=== PATIENT | female | born 1970 | race Caucasian/White ===

== ENCOUNTER 2022-07-23 14:02 | Outpatient (OUT) | payer BC, SELFPAY ==
[2022-07-23 13:59] LABS: Anion Gap 12.8; BUN Creatinine Ratio 16.7; Calcium 9.7 mg/dL (8.5-10.1); Carbon Dioxide 28.7 mmol/L (21.0-32.0); Chloride 100 mmol/L (98-107); Estimated GFR (African America >60 (>=60); Estimated GFR (Non-African Ame 57 (>=60); Glucose 92 mg/dL (74-106); Potassium 3.5 mmol/L (3.5-5.1); Sodium 138 mmol/L (136-145)
== END 2022-07-23 14:03 | disposition home or self-care (01) ==
LOC: LAB 08-17 14:51
PROVIDERS: PCP Internal Medicine; Visit Provider Family Medicine
DX: Z79.899 Other long term (current) drug therapy (principal)
CPT/HCPCS: 36415; 80048

== ENCOUNTER 2022-12-07 13:57 | Emergency (ER) | payer BC, SELFPAY ==
[2022-12-07 14:00] VITALS: BP 146/90; PULSE 78; RESP 18; TEMP 36.8; O2SAT 98; BMI 26.9
--- NOTE | 2022-12-07 14:17 | CT_ITS ---
The [address] [address] Patient Name: DEMARCUS VENTURA MRN: [id number] date: 1970 Sex: F Assigned Patient Location: ER Current Patient Location: ER Accession/Order Number: [id number] Exam Date: 12/07/2022 14:33 Report Date: 12/07/2022 14:58 At the request of: LYNDSAY SAHA Procedure: CT facial bones w con CT facial bones w con, 12/07/2022 2:33 PM EDT, [facility]001 INDICATION: right periorbital erythema and swelling COMPARISON: CT of the face from 10/19/2021.. TECHNIQUE: CT examination of the maxillofacial region is performed with administration of water soluble intravenous contrast. Axial images were obtained with reconstructions in the sagittal and coronal planes. Dose reduction techniques were achieved by using automated exposure control and/or adjustment of mA and /or kV according to patient size and/or use of iterative reconstruction technique. FINDINGS: There is evidence of healing of previously identified nasal bone fractures. No acute fracture is identified. No destructive osseous process is seen. The paranasal sinuses are well aerated. There is moderate right periorbital soft tissue swelling. No radiopaque foreign body is identified. The intraorbital soft tissues appear unremarkable. There is no evidence of soft tissue mass or abnormal enhancement. CT/CT facial bones w con IMPRESSION: No acute fracture is seen. There is moderate right periorbital soft tissue swelling. No radiopaque foreign bodies are identified. Electronically authenticated by: URIEL JC Date: 12/07/2022 14:58
--- NOTE | 2022-12-07 14:18 | ED.GENADUL1 ---
HPI - General Adult General Chief complaint: Wound/Laceration Stated complaint: RIGHT EYE PAIN Time Seen by Provider: 12/07/22 14:11 Source: patient Mode of arrival: walk-in History of Present Illness HPI narrative: 52-year-old female presents for swelling and redness around her right eye, are typically above the eye. a few days ago she developed in area that was firm and it came to the head and some pus came out of it. She was put on Bactrim yesterday and has had three doses. Become more swollen and the redness is below her right eye as well as above. No visual disturbance or fever. Related Data Home Medications Medication Instructions Recorded Confirmed clindamycin phosphate 1 % topical 1 applic topical BID PRN wound care 12/07/22 12/07/22 gel hydrochlorothiazide 25 mg tablet 25 mg PO DAILY 12/07/22 12/07/22 metoprolol tartrate 25 mg tablet 25 mg PO Q12H 12/07/22 12/07/22 pramipexole 0.5 mg tablet 0.5 mg PO .qhs 12/07/22 12/07/22 sulfamethoxazole 800 1 tab PO Q12H 12/07/22 12/07/22 mg-trimethoprim 160 mg tablet vancomycin 125 mg capsule 125 mg PO DAILY 12/07/22 12/07/22 Previous Rx's Medication Instructions Recorded cephalexin 500 mg capsule 500 mg PO TID 7 days #21 caps 12/07/22 Allergies Allergy/AdvReac Type Severity Reaction Status Date / Time No Known Drug Allergies Allergy Verified 12/07/22 14:00 Review of Systems ROS Narrative A ten point review of systems is negative except as noted above. Exam Narrative Exam Narrative: Nurses note and vital signs reviewed and patient is not hypoxic. General: The patient appears well and in no apparent distress. Patient is resting comfortably on cart. Skin: Warm, dry, no pallor noted. There is no rash noted. Head: Normocephalic, atraumatic Eye: Normal conjunctiva, no drainage. She has an area of induration, no fluctuance, just below the right eyebrow. There is erythema that extends to the right infraorbital area. Extraocular movements are intact. Ears, Nose, Mouth, and Throat: oral mucosa is moist. Nares patent. Mouth without vesicles. Ear canals patent. Tm's without Erythema Cardiovascular: Regular Rate and Rhythm Respiratory: Patient is in no distress, no accessory muscle use Back: non-tender GI: nontender Musculoskeletal: no joint swelling Neurological: A&O, normal speech Psychiatric: Cooperative Constitutional Vital Signs, click to edit/add: Last Vital Signs Temp 98.2 F 12/07/22 14:00 Pulse 68 12/07/22 15:29 Resp 16 12/07/22 15:29 BP 127/77 12/07/22 15:29 Pulse Ox 98 12/07/22 15:29 O2 Del Method Room Air 12/07/22 15:29 Course Vital Signs Vital signs: Vital Signs Temperature 98.2 F 12/07/22 14:00 Pulse Rate 78 12/07/22 14:00 Respiratory Rate 18 12/07/22 14:00 Blood Pressure 146/90 H 12/07/22 14:00 Pulse Oximetry 98 12/07/22 14:00 Temperature 98.2 F 12/07/22 14:00 Pulse Rate 68 12/07/22 15:29 Respiratory Rate 16 12/07/22 15:29 Blood Pressure 127/77 12/07/22 15:29 Pulse Oximetry 98 12/07/22 15:29 Oxygen Delivery Method Room Air 12/07/22 15:29 Medical Decision Making MDM Narrative Medical decision making narrative: CAT scan of the face per radiologist suggests the possibility of a 1 x 1 x 1 cm abscess. This was discussed thoroughly with the patient and she was given several options. She was given the option of IV antibiotics here and no incision and drainage with repeat evaluation in a few days. She was also given the option of incision and drainage here today and the pros and cons of each were discussed with her including scarring. He'll ask to have the incision and drainage done today. Differential Diagnosis Differential Diagnosis: facial cellulitis, facial abscess Lab Data Lab results reviewed: Yes I reviewed the patient's lab results Labs: Lab Results 12/07/22 Range/Units 14:14 WBC 7.5 (4.0-11.0) 10^3/uL RBC 4.46 (4.20-5.40) 10^6/uL Hgb 13.4 (12.0-16.0) g/dL Hct 38.9 (36.0-48.0) % MCV 87.2 (81.0-99.0) fL MCH 30.0 (26.7-34.0) pg MCHC 34.4 (29.9-35.2) g/dL RDW 12.9 (11.0-15.0) % Plt Count 286 (150-450) 10^3/uL MPV 11.2 (9.5-13.5) fL Neut % (Auto) 66.9 (43.0-75.0) % Lymph % (Auto) 24.4 (20.5-60.0) % Campbell % (Auto) 6.4 (1.7-12.0) % Eos % (Auto) 1.7 (0.9-7.0) % Baso % (Auto) 0.3 (0.2-2.0) % Neut # (Auto) 5.0 (1.4-6.5) 10^3/uL Lymph # (Auto) 1.8 (1.2-3.8) 10^3/uL Campbell # (Auto) 0.5 (0.3-0.8) 10^3/uL Eos # (Auto) 0.1 (0.0-0.7) 10^3/uL Baso # (Auto) 0.0 (0.0-0.1) 10^3/uL Abs Immat Gran (auto) 0.02 (0.00-0.03) 10^3/uL Imm/Tot Granulo (auto) 0.3 (0.0-0.5) % Imaging Data CT facial bones: Radiologist's impression: Procedure: CT facial bones w con Begin Addendum #1 Further review of the images was made. Images 57 through 59 demonstrates a 1. 1 x 1. 0 cm area of hypodensity with peripheral hyperdensity suspicious for a focal abscess along the superior medial orbital rim. These findings were discussed with emergency room physician by telephone 3:[address] facial bones w con, 12/07/2022 2:33 PM EDT, [facility]001 INDICATION: right periorbital erythema and swelling COMPARISON: CT of the face from 10/19/2021. . TECHNIQUE: CT examination of the maxillofacial region is performed with administration of water soluble intravenous contrast. Axial images were obtained with reconstructions in the sagittal and coronal planes. Dose reduction techniques were achieved by using automated exposure control and/or adjustment of mA and /or kV according to patient size and/or use of iterative reconstruction technique. FINDINGS: There is evidence of healing of previously identified nasal bone fractures. No acute fracture is identified. No destructive osseous process is seen. The paranasal sinuses are well aerated. There is moderate right periorbital soft tissue swelling. No radiopaque foreign body is identified. The intraorbital soft tissues appear unremarkable. There is no evidence of soft tissue mass or abnormal enhancement. IMPRESSION: No acute fracture is seen. There is moderate right periorbital soft tissue swelling. No radiopaque foreign bodies are identified. Electronically authenticated by: TEVIN DE LA CRUZ Date: 12/07/2022 15:11 Discharge Plan Discharge Chief Complaint: Wound/Laceration Clinical Impression: Cellulitis of face Patient Disposition: Home, Self-Care Time of Disposition Decision: 15:51 Condition: Good Mode of Transportation: Private Vehicle Prescriptions / Home Meds: New cephalexin 500 mg capsule 500 mg PO TID 7 Days Qty: 21 0RF No Action clindamycin phosphate 1 % gel 1 applic TOPICAL BID PRN (Reason: wound care) hydrochlorothiazide 25 mg tablet 25 mg PO DAILY metoprolol tartrate 25 mg tablet 25 mg PO Q12H pramipexole 0.5 mg tablet 0.5 mg PO .qhs sulfamethoxazole-trimethoprim 800-160 mg tablet 1 tab PO Q12H vancomycin 125 mg capsule 125 mg PO DAILY Instructions: Cellulitis (ED) Additional Instructions: Continue the Bactrim Stand Alone Forms: Portal Instructions Referrals: KORINA CROWE [Primary Care Provider] - 1 week Procedures ED Procedure Instructions Procedures Procedures: the following procedure was performed by me. Local infiltration was carried out with one percent lidocaine without epinephrine resulting in complete skin anesthesia. The area was prepped with Betadine ?3 and draped sterilely. Using a #11 blade a very small incision was made and a small amount of bleeding occurred. One side of a curved hemostat was placed into the open area and was rotated. She tolerated the procedure well and there were no complications. Wound culture ordered.
[2022-12-07 14:50] LABS: Basophils Percent Auto 0.3 % (0.2-2.0); Eosinophils Absolute Auto 0.1 10^3/uL (0.0-0.7); Eosinophils Percent Auto 1.7 % (0.9-7.0); Hematocrit 38.9 % (36.0-48.0); Hemoglobin 13.4 g/dL (12.0-16.0); Immature Granulocytes Abs Auto 0.02 10^3/uL (0.00-0.03); Immature Granulocytes Pct Auto 0.3 % (0.0-0.5); Lymphocytes Absolute Auto 1.8 10^3/uL (1.2-3.8); Lymphocytes Percent Auto 24.4 % (20.5-60.0); Mean Corpuscular HGB Conc 34.4 g/dL (29.9-35.2); Mean Corpuscular Volume 87.2 fL (81.0-99.0); Mean Platelet Volume 11.2 fL (9.5-13.5); Monocytes Absolute Auto 0.5 10^3/uL (0.3-0.8); Monocytes Percent Auto 6.4 % (1.7-12.0); Neutrophils Percent Auto 66.9 % (43.0-75.0); Platelet Count 286 10^3/uL (150-450); Red Blood Count 4.46 10^6/uL (4.20-5.40); Red Cell Distribution Width 12.9 % (11.0-15.0); White Blood Count 7.5 10^3/uL (4.0-11.0)
[2022-12-07 15:29] VITALS: BP 127/77; PULSE 68; RESP 16; O2SAT 98
[2022-12-07] MEDS: LIDOCAINE HCL 1% 100 MG/10 ML MDV INJ (15:32)
[2022-12-07 16:14] LABS: Anion Gap 14.1; BUN Creatinine Ratio 7.7; Calcium 9.1 mg/dL (8.5-10.1); Carbon Dioxide 26.7 mmol/L (21.0-32.0); Chloride 95 mmol/L (98-107); Estimated GFR (African America >60 (>=60); Estimated GFR (Non-African Ame 56 (>=60); Glucose 75 mg/dL (74-106); Sodium 133 mmol/L (136-145)
[2022-12-07 16:15] LABS: Potassium 2.8 mmol/L (3.5-5.1)
== END 2022-12-07 16:18 | disposition home or self-care (01) ==
PROVIDERS: Emergency Provider Emergency Medicine; PCP Internal Medicine
DX: L03.211 Cellulitis of face (principal); Z79.899 Other long term (current) drug therapy
CPT/HCPCS: 10060; 36415; 70487; 80048; 85025; 87070; 87150; 87186; 99285; Q9967

== ENCOUNTER 2023-03-24 14:05 | Outpatient (OUT) | payer BC, SELFPAY ==
--- NOTE | 2023-03-24 14:05 | PCN_ITS ---
EEG ? Procedure Date:? 03/24/2023 ? This is a routine EEG performed on a 52-year-old female using standard 10/20 lead placement in the [employer] system.? All data was obtained digitally and is available for reformatting and remontaging.? ? There is a posterior dominant rhythm in the 9-11 Hz alpha range and 20-30 microvolt amplitude range recorded in the occipital leads symmetrically during restful wakefulness.? This rhythm attenuates with eye opening.? There is beta activity in the 15-20 Hz range and less than 20 microvolt amplitude range, recorded in the frontal sensory regions intermittently and symmetrically throughout the record.? ? There is beta activity in the 4-6 Hz range and 20-40 microvolt amplitude range recorded in a generalized pattern during one period during the record, which occurred infrequently. ? There is no epileptiform activity recorded during the record.? There are no seizures recorded during the record.? ? IMPRESSION:? This is an abnormal EEG due to intermittent slow generalized activity consistent with mild diffuse encephalopathy.? Clinical correlation is required. MTDD
== END 2023-03-24 14:06 | disposition home or self-care (01) ==
LOC: CARD 14:05
PROVIDERS: PCP Internal Medicine; Visit Provider Family Medicine
DX: R44.2 Other hallucinations (principal)
CPT/HCPCS: 95819

== ENCOUNTER 2023-04-06 13:43 | Outpatient (OUT) | payer BC, SELFPAY ==
--- NOTE | 2023-04-06 13:47 | MR_ITS ---
The [address] [address] Patient Name: DEMARCUS VENTURA MRN: [id number] date: 1970 Sex: F Assigned Patient Location: MRI Current Patient Location: MRI Accession/Order Number: [id number] Exam Date: 04/06/2023 13:57 Report Date: 04/06/2023 15:39 At the request of: TITO FREEDMAN Procedure: MR head/brain wo/w con MRI brain with and without contrast, 04/06/2023. HISTORY: Abnormal sensation of smell. COMPARISON: None. TECHNIQUE: Multiplanar, multisequence MRI imaging of the brain with and without contrast. FINDINGS: The paranasal sinuses are clear. Mastoid air cells are clear. Orbital contents are normal. Nasopharynx is normal. 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 The ventricles are normal in size. No hydrocephalus. No mass effect. No shift of midline. No abnormal signal in the brain. The diffusion images are normal. No acute infarction. There are no hemorrhagic lesions. No pathologic enhancement in the brain. No brain mass. MR/MR head/brain wo/w con IMPRESSION: Normal MRI of the brain. Electronically authenticated by: MANUEL MALONE Date: 04/06/2023 15:39
--- OUTSIDE RECORDS SUMMARY | 2023-04-06 13:47 | XMS_ITS | CCD ---
Author Name Unknown Address [address] [place] [address] Organization [facility] Care Team Providers Care Primer Waterproofing Machine Operator Name Role Phone PHYSICIAN, DEFAULT Unavailable Unavailable PHYSICIAN, DEFAULT Unavailable Unavailable DOROTHY, DR TEVIN Tobin Consulting Unavailable NAYELI ., CLARK Attending Unavailable NAYELI ., CLARK Admitting Unavailable HOY ., DR FRANCIS Primary Care Unavailable RON, DR ADA Kennedy Consulting Unavailable FRITZ ., ELIEL Consulting Unavailable NAYELI ., CLARK Consulting Unavailable DOROTHY, DR TEVIN Tobin Consulting Unavailable LEONAY ., DR FRANCIS Primary Care Unavailable DOROTHY, DR TEVIN Tobin Attending Unavailable DOROTHY, DR TEVIN Tobin Admitting Unavailable HOY ., DR FRANCIS Consulting Unavailable HOY ., DR FRANCIS Primary Care Unavailable HOY ., DR FRANCIS Attending Unavailable HOY ., DR FRANCIS Admitting Unavailable HOY ., DR FRANCIS Consulting Unavailable HOY ., DR FRANCIS Primary Care Unavailable HOY ., DR FRANCIS Attending Unavailable HOY ., DR FRANCIS Admitting Unavailable NAYELI ., CLARK Consulting Unavailable NAYELI ., CLARK Attending Unavailable NAYELI ., CLARK Admitting Unavailable HOY ., DR FRANCIS Primary Care Unavailable HOY ., DR FRANCIS Primary Care Unavailable HOY ., DR FRANCIS Attending Unavailable HOY ., DR FRANCIS Admjoanie Unavailable HOY ., DR FRANCIS Consulting Unavailable HOY ., DR FRANCIS Primary Care Unavailable HOY ., DR FRANCIS Attending Unavailable HOY ., DR FRANCIS Admitting Unavailable HOY ., DR FRANCIS Consulting Unavailable HOY ., DR FRANCIS Primary Care Unavailable HOY ., DR FRANCIS Attending Unavailable HOY ., DR FRANCIS Admitting Unavailable GRIFFIN ., MR ACOSTA Consulting Unavailable HOY ., DR FRANCIS Primary Care Unavailable GRIFFIN ., MR ACOSTA Attending Unavailable GRIFFIN ., MR DAVE Admitting Unavailable HOY ., DR FRANCIS Primary Care Unavailable GRIFFIN ., MR DAVE Consulting Unavailable GRIFFIN ., MR DAVE Attending Unavailable GRIFFIN ., MR DAVE Admitting Unavailable DOROTHY, DR TEVIN Tobin Consulting Unavailable HOY ., DR FRANCIS Primary Care Unavailable JAMIE, NELIA Attending Unavailable JAMIE, NELIA Admitting Unavailable NELIA AYALA Consulting Unavailable RON, DR ADA Kennedy Consulting Unavailable HOY ., DR FRANCIS Primary Care Unavailable AYUSH FLORENCE Attending Unavailable APLING, AYUSH Guevara Admitting Unavailable APLINGAYUSH Consulting Unavailable HOY ., DR FRANCIS Consulting Unavailable HOY ., DR FRANCIS Primary Care Unavailable HOY ., DR FRANCIS Attending Unavailable HOY ., DR FRANCIS Admitting Unavailable HOY ., DR FRANCIS Consulting Unavailable HOY ., DR FRANCIS Primary Care Unavailable HOY ., DR FRANCIS Attending Unavailable HOY ., DR FRANCIS Admitting Unavailable HOY ., DR FRANCIS Consulting Unavailable HOY ., DR FRANCIS Primary Care Unavailable HOY ., DR FRANCIS Attending Unavailable HOY ., DR FRANCIS Admitting Unavailable HOY ., DR FRANCIS Consulting Unavailable HOY ., DR FRANCIS Primary Care Unavailable HOY ., DR FRANCIS Attending Unavailable HOY ., DR FRANCIS Admitting Unavailable MD Martin Chao Primary Care Provider [phone] MD Segundo Macias Jr Emergency Provider Daren Boo Unavailable MD Daren Boo Attending Provider [phone] NO FAMILY, PHYSICIAN Primary Care Provider Unava ilable Martin Chao Primary Care Unavailable Segundo Macias Jr Admitting Unavailable Segundo Macias Jr Attending Unavailable NO FAMILY, PHYSICIAN Primary Care Unavailable Daren Boo Admitting Unavailable Daren Boo Attending Unavailable NO FAMILY, PHYSICIAN Primary Care Unavailable Daren Boo Admitting Unavailable Daren Boo Attending Unavailable Medications Current Medications Medication Drug Class(es) Dates Sig (Normalized) Sig (Original) acetaminophen 325 mg / oxyCODONE hydrochloride 5 mg oral tablet (3 sources) Opioid Agonist Start: 09-07-19 take 1 tablet by mouth every six hours Oxycodone-Acetaminophe n (Percocet) 5-325 mg tablet Active 1 TAB PO Every 6 hours 01 23September 06, 2022 clindamycin 0.01 mg/mg topical gel (1 source) Lincosamide Antibacterial Start: 10-08-19 Clindamycin Phosphate 1 % 1 application Externally Twice a day for 14 days CLINDAMYCIN BASED GEL; GENERIC OK. LARGE TUBE Sep, Active hydroCHLOROthiazide 25 mg oral tablet (1 source) Thiazide Diuretic take 1 tablet by mouth every twenty-four hours hydroCHLOROthiazide 25 MG 1 tablet Orally Once a day Active ibuprofen 600 mg oral tablet (3 sources) Nonsteroidal Anti-inflammatory Drug Start: 09-07-19 take 600 mg by mouth every eight hours Ibuprofen Active 600 MG PO Q8H September 06, 2022 12:00am metoprolol tartrate 25 mg oral tablet (1 source) beta-Adrenergic Dae take 1 tablet by mouth every twelve hours Metoprolol Tartrate 25 MG 1 tablet with food Orally Twice a day Active 24 hr pramipexole dihydrochloride 0.375 mg extended release oral tablet (1 source) Nonergot Dopamine Agonist take 1 tablet by mouth every twenty-four hours Mirapex ER 0.375 MG 1 tablet Orally Once a day Active valACYclovir 500 mg oral tablet (1 source) Herpesvirus Nucleoside Analog DNA Polymerase Inhibitor, Herpes Simplex Virus Nucleoside Analog DNA Polymerase Inhibitor, Herpes Zoster Virus Nucleoside Analog DNA Polymerase Inhibitor take 1 tablet by mouth every twenty-four hours Valtrex 500 MG 1 tablet as needed Orally Once a day Active 24 hr venlafaxine 150 mg extended release oral capsule (1 source) Serotonin and Norepinephrine Reuptake Inhibitor take 1 capsule by mouth every twenty-four hours Effexor XR 150 MG 1 capsule with food Orally Once a day Active Problems Active Problems Problem Classification Problem Date Documented Da te Episodic/Chronic Immunizations and screening for infectious disease (7 sources) Encounter for immunization; Translations: [Carrier or suspected carrier of Methicillin resistant Staphylococcus aureus] Onset: 07-07-2021 Episodic Joint disorders and dislocations; trauma-related (4 sources) Unspecified internal derangement of right knee; Translations: [UNS INTERNAL DERANGEMENT RIGHT KNEE] Onset: 10-29-2021 Chronic Other gastrointestinal disorders (4 sources) Diarrhea, unspecified; Translations: [DIARRHEA UNSPECIFIED] Onset: 05-18-2022 Episodic Other hereditary and degenerative nervous system conditions (1 source) Extrapyramidal and movement disorder, unspecified; 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 DISORDER UNS] Onset: 10-05-2021 Chronic Skin and subcutaneous tissue infections (6 sources) Abscess of face; Translations: [Cutaneous abscess of face] 09-06-2022 Episodic Unclassified (2 sources) LOW BACK PAIN, UNSPECIFIED; Translations: [LOW BACK PAIN, UNSPECIFIED] Onset: 01-19-2022 Unclassified (3 sources) CONTACT W/AND (SUSP) EXPOS COVID-19; Translations: [CONTACT W/AND (SUSP) EXPOS COVID-19] Onset: 09-25-2021 Unclassified (1 source) Cellulitis of right orbit; Translations: [Cellulitis of right orbit] Onset: 12-09-2022 Unclassified (1 source) Abscess of right upper eyelid; Translations: [Abscess of right upper eyelid] Onset: 12-06-2022 Unclassified (1 source) Periorbital cellulitis; Translations: [Periorbital cellulitis] Onset: 09-06-2022 Viral infection (1 source) COVID-19; Translations: [COVID-19] Onset: 09-19-2021 Past or Other Problems Problem Classification Problem Date Documented Da te Episodic/Chronic Cardiac dysrhythmias (5 sources) Palpitations; Translations: [PALPITATIONS] Onset: 10-12-2021 Episodic Coagulation and hemorrhagic disorders (1 source) Spontaneous ecchymoses; Translations: [SPONTANEOUS ECCHYMOSES] Onset: 01-11-2022 Episodic Diabetes mellitus without complication (1 source) Other abnormal glucose; Translations: [OTHER ABNORMAL GLUCOSE] Onset: 10-05-2021 Episodic E Codes: Fall (1 source) Fall (on) (from) unspecified stairs and steps, initial encounter; Translations: [FALL ON FROM UNS STAIRS STEPS INIT] Onset: 10-21-2021 Episodic E Codes: Natural/environment (1 source) Other and unspecified overexertion or strenuous movements or postures, initial encounter; Translations: [OTH AND UNS OVREXRT/STRN MVMT/POS INT] Onset: 01-19-2022 Episodic Malaise and fatigue (1 source) Other fatigue; Translations: [OTHER FATIGUE] Onset: 01-11-2022 Episodic Nonspecific chest pain (4 sources) Chest pain, unspecified; Translations: [CHEST PAIN UNSPECIFIED] Onset: 01-11-2022 Episodic Open wounds of head; neck; and trunk (1 source) Laceration without foreign body of other part of head, initial encounter; Translations: [LAC W/O FB OTH PART HEAD INIT ENC] Onset: 10-21-2021 Episodic Other aftercare (1 source) Other lobsterman (current) drug therapy; Translations: [OTH DIRECTOR OF GIFT PLANNING CURRENT DRUG THERAPY] Onset: 10-21-2021 Episodic Other connective tissue disease (4 sources) Pain in left foot; Translations: [PAIN IN LEFT FOOT] Onset: 03-01-2022 Episodic Other connective tissue disease (4 sources) Pain in left toe(s); Translations: [PAIN IN LEFT TOES] Onset: 02-08-2022 Episodic Other injuries and conditions due to external causes (4 sources) Other specified injuries of head, initial encounter; Translations: [OTH SPEC INJURIES HEAD INITIAL ENC] Onset: 10-19-2021 Episodic Other non-traumatic joint disorders (4 sources) Pain in right knee; Translations: [PAIN IN RIGHT KNEE] Onset: 02-01-2022 Episodic Other skin disorders (1 source) Localized swelling, mass and lump, left lower limb; Translations: [LOC SWELL MASS LUMP LT LOWER LIMB] Onset: 03-03-2022 Episodic Skull and face fractures (1 source) Fracture of nasal bones, initial encounter for closed fracture; Translations: [FX NASAL BONES INITIAL ENC CLOS FX] Onset: 10-21-2021 Episodic Sprains and strains (1 source) Strain of muscle, fascia and tendon of lower back, initial encounter; Translations: [STRAIN MUSC FASC TENDON LW BACK INT] Onset: 01-19-2022 Episodic Superficial injury; contusion (1 source) Contusion of right knee, initial encounter; Translations: [CONTUSION RIGHT KNEE INITIAL ENC] Onset: 10-21-2021 Episodic Unclassified (1 source) LOW BACK PAIN, UNSPECIFIED; Translations: [LOW BACK PAIN, UNSPECIFIED] Onset: 01-14-2022 Unclassified (1 source) CONTACT W/AND (SUSP) EXPOS COVID-19; Translations: [CONTACT W/AND (SUSP) EXPOS COVID-19] Onset: 09-23-2021 Results Test Name Value Interpretation Reference Range Facility MRSA Cultureon 12-06-2022 MRSA Culture No MRSA Isolated 2 Days PERFORMED BY: [facility] [address] [place] [address] PATHOLOGIST FRETTED STRING INSTRUMENT REPAIRER COLLEEN CHAVEZ M.D. Normal [facility] Comment on above: Performed By: #### C UMRSA #### [facility] [address] Alanine aminotransferase [En zymatic activity/volume] in Serum or PlasmaOrdered By: PROVIDER TEMP on 09-06-2022 ALT [Catalytic activity/Vol] 11 U/L 7-52 [facility] Albumin [Mass/volume] in Ser um or Plasma by Bromocresol green (BCG) dye binding methoOrdered By: PROVIDER TEMP on 09-06-2022 Albumin BCG dye [Mass/Vol] 4.8 g/dL 3.5-5.7 [facility] Alkaline phosphatase [Enzyma tic activity/volume] in Serum or PlasmaOrdered By: PROVIDER TEMP on 09-06-2022 ALP [Catalytic activity/Vol] 76 U/L 34-104 [facility] Aspartate aminotransferase [ Enzymatic activity/volume] in Serum or PlasmaOrdered By: PROVIDER TEMP on 09-06-2022 AST [Catalytic activity/Vol] 19 U/L 13-39 [facility] Basophils Auto (Bld) [#/Vol] Ordered By: PROVIDER TEMP on 09-06-2022 Basophils (Bld) [#/Vol] 0.0 10*3/uL 0.0-0.2 [facility] Basophils/100 WBC Auto (Bld) Ordered By: PROVIDER TEMP on 09-06-2022 Basophils/100 WBC (Bld) 0.5 % . [facility] Bilirubin.total [Mass/volume ] in Serum or PlasmaOrdered By: PROVIDER TEMP on 09-06-2022 Bilirubin [Mass/Vol] 0.4 mg/dL 0.3-1.0 [facility] Calcium [Mass/volume] in Ser um or PlasmaOrdered By: PROVIDER TEMP on 09-06-2022 Calcium [Mass/Vol] 9.4 mg/dL 8.6-10.3 [facility] Carbon dioxide, total [Moles /volume] in Serum or PlasmaOrdered By: PROVIDER TEMP on 09-06-2022 CO2 [Moles/Vol] 28.2 mmol/L 21.0-31.0 [facility] Chloride [Moles/volume] in S fausto or PlasmaOrdered By: PROVIDER TEMP on 09-06-2022 Chloride [Moles/Vol] 100 mmol/L 98-107 [facility] Complete Blood Count Auto Di ffon 09-06-2022 Basophils (Bld) [#/Vol] 0.0 10*3/uL Normal 0.0-0.2 [facility] Comment on above: Result Comment: PERF ORMED BY: [place] [address] PATHOLOGIST FRETTED STRING INSTRUMENT REPAIRER COLLEEN CHAVEZ M.D. Performed By: #### C BC, CMP #### [address] Basophils/100 WBC (Bld) 0.5 % Normal . [facility] Comment on above: Performed By: #### C BC, CMP #### [address] Eosinophils (Bld) [#/Vol] 0.1 10*3/uL Normal 0.0-0.45 [facility] Comment on above: Performed By: #### C BC, CMP #### [address] Eosinophils/100 WBC (Bld) 1.2 % Normal . [facility] Comment on above: Performed By: #### C BC, CMP #### [address] Erythrocyte distribution width (RBC) [Ratio] 14.3 % Normal 11.9-15.3 [facility] Comment on above: Performed By: #### C BC, CMP #### [address] Hematocrit (Bld) [Volume fraction] 41.1 % Normal 34.0-46.4 [facility] Comment on above: Performed By: #### C BC, CMP #### [address] Hemoglobin (Bld) [Mass/Vol] 13.7 g/dL Normal 11.8-15.4 [facility] Comment on above: Performed By: #### C BC, CMP #### [facility] [address] [place] [address] [place] Lymphocytes (Bld) [#/Vol] 2.3 10*3/uL Normal 1.00-4.8 [facility] Comment on above: Performed By: #### C BC, CMP #### [facility] [address] Lymphocytes/100 WBC (Bld) 28.7 % Normal . [facility] Comment on above: Performed By: #### C BC, CMP #### [facility] [address] MCH (RBC) [Entitic mass] 29.6 pg Normal 24.7-34.3 [facility] Comment on above: Performed By: #### C BC, CMP #### [facility] [address] MCV (RBC) [Entitic vol] 88.9 fL Normal 80-100 [facility] Comment on above: Performed By: #### C BC, CMP #### [facility] [address] Mean Corpuscular HGB Conc 33.3 g/dL Normal 32.0-35.0 [facility] Comment on above: Performed By: #### C BC, CMP #### [facility] [address] [place] [address] [place] Monocytes (Bld) [#/Vol] 0.4 10*3/uL Normal 0.0-0.8 [facility] Comment on above: Performed By: #### C BC, CMP #### [facility] [address] [place] [address] [place] Monocytes/100 WBC (Bld) 18.29 % Normal 0.00-20.00 [facility] Comment on above: Performed By: #### C BC, CMP #### [facility] [address] [place] [address] [place] Monocytes/100 WBC (Bld) 4.7 % Normal . [facility] Comment on above: Performed By: #### C BC, CMP #### [facility] [address] [place] [address] [place] Neutrophils (Bld) [#/Vol] 5.2 10*3/uL Normal 1.8-7.7 [facility] Comment on above: Performed By: #### C BC, CMP #### [facility] [address] [place] [address] [place] Neutrophils/100 WBC (Bld) 64.9 % Normal . [facility] Comment on above: Performed By: #### C BC, CMP #### [facility] [address] NRBC% 0.1 /100{WBC} Normal 0-0.5 [facility] Comment on above: Performed By: #### C BC, CMP #### [facility] [address] Platelet mean volume (Bld) [Entitic vol] 8.8 fL Normal 6.3-10.7 [facility] Comment on above: Performed By: #### C BC, CMP #### [facility] [address] [place] [address] [place] Platelets (Bld) [#/Vol] 252 10*3/uL Normal 150-450 [facility] Comment on above: Performed By: #### C BC, CMP #### [facility] [address] [place] [address] [place] RBC (Bld) [#/Vol] 4.62 10*6/uL Normal 3.60-5.00 [facility] Comment on above: Performed By: #### C BC, CMP #### [facility] [address] [place] [address] [place] WBC (Bld) [#/Vol] 8.0 10*3/uL Normal 3.8-11.6 [facility] Comment on above: Performed By: #### C BC, CMP #### [facility] [address] Comprehensive Metabolic Pane parag 09-06-2022 Albumin [Mass/Vol] 4.8 g/dL Normal 3.5-5.7 [facility] Comment on above: Performed By: #### C BC, CMP #### [facility] [address] Albumin/Globulin [Mass ratio] 1.6 {ratio} Normal [facility] Comment on above: Performed By: #### C BC, CMP #### [facility] [address] ALP [Catalytic activity/Vol] 76 U/L Normal 34-104 [facility] Comment on above: Performed By: #### C BC, CMP #### [facility] [address] ALT [Catalytic activity/Vol] 11 U/L Normal 7-52 [facility] Comment on above: Performed By: #### C BC, CMP #### [address] Anion gap [Moles/Vol] 12.8 mmol/L Normal 6.0-15.0 [facility] Comment on above: Performed By: #### C BC, CMP #### [facility] [address] [place] [address] AST [Catalytic activity/Vol] 19 U/L Normal 13-39 [facility] Comment on above: Performed By: #### C BC, CMP #### [facility] [address] [place] [address] Bilirubin [Mass/Vol] 0.4 mg/dL Normal 0.3-1.0 [facility] Comment on above: Performed By: #### C BC, CMP #### [facility] [address] [place] [address] [place] Calcium [Mass/Vol] 9.4 mg/dL Normal 8.6-10.3 [facility] Comment on above: Performed By: #### C BC, CMP #### [facility] [address] Chloride [Moles/Vol] 100 mmol/L Normal 98-107 [facility] Comment on above: Performed By: #### C BC, CMP #### [facility] [address] CO2 [Moles/Vol] 28.2 mmol/L Normal 21.0-31.0 [facility] Comment on above: Performed By: #### C BC, CMP #### [facility] [address] Creatinine [Mass/Vol] 0.95 mg/dL Normal 0.60-1.20 [facility] Comment on above: Performed By: #### C BC, CMP #### [facility] [address] [place] [address] [place] Creatinine Clr Calc Pharmacy 59.17 [facility] Comment on above: Result Comment: PERF ORMED BY: [place] [address] PATHOLOGIST FRETTED STRING INSTRUMENT REPAIRER COLLEEN CHAVEZ M.D. Performed By: #### C BC, CMP #### [address] GFR/1.73 sq M.predicted MDRD (S/P/Bld) [Vol rate/Area] mL/min/{1.73_m2} [facility] Comment on above: Performed By: #### C BC, CMP #### [facility] [address] Globulin (S) [Mass/Vol] 3.0 g/dL Normal [facility] Comment on above: Performed By: #### C BC, CMP #### [facility] [address] Glucose [Mass/Vol] 104 mg/dL High 70-100 [facility] Comment on above: Result Comment: [place] Glucose Reference Range is dependent on time and content of last meal. Glucose of more than 200 mg/dL in a nonstressed, ambulatory subject supports the diagnosis of Diabetes Mellitus. ADA recommended reference range Performed By: #### C BC, CMP #### [facility] [address] Potassium [Moles/Vol] 3.0 mmol/L Low 3.5-5.1 [facility] Comment on above: Performed By: #### C BC, CMP #### [facility] [address] [place] [address] [place] Protein [Mass/Vol] 7.8 g/dL Normal 6.4-8.9 [facility] Comment on above: Performed By: #### C BC, CMP #### [facility] [address] [place] [address] [place] Sodium [Moles/Vol] 138 mmol/L Normal 136-145 [facility] Comment on above: Performed By: #### C BC, CMP #### [facility] [address] [place] [address] [place] Urea nitrogen [Mass/Vol] 14 mg/dL Normal 7-25 [facility] Comment on above: Performed By: #### C BC, CMP #### [facility] [address] [place] [address] [place] Creatinine [Mass/volume] in Serum or PlasmaOrdered By: PROVIDER TEMP on 09-06-2022 Creatinine [Mass/Vol] 0.95 mg/dL 0.60-1.20 [facility] Eosinophils Auto (Bld) [#/Vo l]Ordered By: PROVIDER TEMP on 09-06-2022 Eosinophils (Bld) [#/Vol] 0.1 10*3/uL 0.0-0.45 [facility] Eosinophils/100 WBC Auto (Bl d)Ordered By: PROVIDER TEMP on 09-06-2022 Eosinophils/100 WBC (Bld) 1.2 % . [facility] Erythrocyte distribution wid th Auto (RBC) [Ratio]Ordered By: PROVIDER TEMP on 09-06-2022 Erythrocyte distribution width (RBC) [Ratio] 14.3 % 11.9-15.3 [facility] Globulin Calc (S) [Mass/Vol] Ordered By: PROVIDER TEMP on 09-06-2022 Globulin (S) [Mass/Vol] 3.0 g/dL [facility] Glucose [Mass/volume] in Ser um or PlasmaOrdered By: PROVIDER TEMP on 09-06-2022 Glucose [Mass/Vol] 104 mg/dL 70-100 [facility] Comment on above: ADA recommended refe rence rangeRandom Glucose Reference Range is dependent on time and content of last meal. Glucose of more than 200 mg/dL in a nonstressed, ambulatory subject supports the diagnosis of Diabetes Mellitus. Hematocrit Auto (Bld) [Volum e fraction]Ordered By: PROVIDER TEMP on 09-06-2022 Hematocrit (Bld) [Volume fraction] 41.1 % 34.0-46.4 [facility] Hemoglobin [Mass/volume] in BloodOrdered By: PROVIDER TEMP on 09-06-2022 Hemoglobin (Bld) [Mass/Vol] 13.7 g/dL 11.8-15.4 [facility] Leukocytes [#/volume] correc hernandez for nucleated erythrocytes in Blood by Automated counOrdered By: PROVIDER TEMP on 09-06-2022 WBC corrected for nucl RBC Auto (Bld) [#/Vol] 8.0 10*3/uL 3.8-11.6 [facility] Lymphocytes Auto (Bld) [#/Vo l]Ordered By: PROVIDER TEMP on 09-06-2022 Lymphocytes (Bld) [#/Vol] 2.3 10*3/uL 1.00-4.8 [facility] Lymphocytes/100 WBC Auto (Bl d)Ordered By: PROVIDER TEMP on 09-06-2022 Lymphocytes/100 WBC (Bld) 28.7 % . [facility] MCH Auto (RBC) [Entitic mass ]Ordered By: PROVIDER TEMP on 09-06-2022 MCH (RBC) [Entitic mass] 29.6 pg 24.7-34.3 [facility] MCHC Auto (RBC) [Mass/Vol]Or dered By: PROVIDER TEMP on 09-06-2022 MCHC (RBC) [Mass/Vol] 33.3 g/dL 32.0-35.0 [facility] MCV Auto (RBC) [Entitic vol] Ordered By: PROVIDER TEMP on 09-06-2022 MCV (RBC) [Entitic vol] 88.9 fL 80-100 [facility] Monocyte distribution width [Entitic volume] in Blood by AutomatedOrdered By: PROVIDER TEMP on 09-06-2022 Monocyte distribution width Auto (Bld) [Entitic vol] 18.29 % 0.00-20.00 [facility] Monocytes Auto (Bld) [#/Vol] Ordered By: PROVIDER TEMP on 09-06-2022 Monocytes (Bld) [#/Vol] 0.4 10*3/uL 0.0-0.8 [facility] Monocytes/100 WBC Auto (Bld) Ordered By: PROVIDER TEMP on 09-06-2022 Monocytes/100 WBC (Bld) 4.7 % . [facility] Neutrophils Auto (Bld) [#/Vo l]Ordered By: PROVIDER TEMP on 09-06-2022 Neutrophils (Bld) [#/Vol] 5.2 10*3/uL 1.8-7.7 [facility] Neutrophils/100 WBC Auto (Bl d)Ordered By: PROVIDER TEMP on 09-06-2022 Neutrophils/100 WBC (Bld) 64.9 % . [facility] No Panel InformationOrdered By: PROVIDER TEMP on 09-06-2022 Estimated GFR (CKD-EPI) > 60.0 mL/Min [facility] Creatinine Clearance (Chem 59.17 [facility] Nucleated erythrocytes [Pres ence] in Blood by Automated countOrdered By: PROVIDER TEMP on 09-06-2022 Nucleated RBC Auto Ql (Bld) 0.1 /100{WBC} 0-0.5 [facility] Platelet mean volume Auto (B ld) [Entitic vol]Ordered By: PROVIDER TEMP on 09-06-2022 Platelet mean volume (Bld) [Entitic vol] 8.8 fL 6.3-10.7 [facility] Platelets Auto (Bld) [#/Vol] Ordered By: PROVIDER TEMP on 09-06-2022 Platelets (Bld) [#/Vol] 252 10*3/uL 150-450 [facility] Potassium [Moles/volume] in Serum or PlasmaOrdered By: PROVIDER TEMP on 09-06-2022 Potassium [Moles/Vol] 3.0 mmol/L 3.5-5.1 [facility] Protein [Mass/volume] in Ser um or PlasmaOrdered By: PROVIDER TEMP on 09-06-2022 Protein [Mass/Vol] 7.8 g/dL 6.4-8.9 [facility] RBC Auto (Bld) [#/Vol]Ordere d By: PROVIDER TEMP on 09-06-2022 RBC (Bld) [#/Vol] 4.62 10*6/uL 3.60-5.00 [facility] Serum or plasma albumin/glob ulin mass ratioOrdered By: PROVIDER TEMP on 09-06-2022 Albumin/Globulin [Mass ratio] 1.6 {ratio} [facility] Serum or plasma anion gap de terminationOrdered By: PROVIDER TEMP on 09-06-2022 Anion gap [Moles/Vol] 12.8 mmol/L 6.0-15.0 [facility] Sodium [Moles/volume] in Ser um or PlasmaOrdered By: PROVIDER TEMP on 09-06-2022 Sodium [Moles/Vol] 138 mmol/L 136-145 [facility] Urea nitrogen [Mass/volume] in Serum or PlasmaOrdered By: PROVIDER TEMP on 09-06-2022 Urea nitrogen [Mass/Vol] 14 mg/dL 7-25 [facility] WBC Auto (Bld) [#/Vol]Ordere d By: PROVIDER TEMP on 09-06-2022 WBC (Bld) [#/Vol] 8.0 10*3/uL 3.8-11.6 [facility] GI PANEL (PCR)on 05-18-2022 Adenovirus F 40/41 Not detected Normal NOT DETECTED [facility] Comment on above: Performed By: #### C MP, LIPID #### [facility] [address] [address] [address] Lelo Fraire Astrovirus Not detected Normal NOT DETECTED [facility] Comment on above: Performed By: #### C MP, LIPID #### [facility] [address] [address] [address] Lelo Irvin. Diff toxin A/B Detected Critically abnormal NOT DETECTED [facility] Comment on above: Performed By: #### C MP, LIPID #### [facility] [address] [address] [address] Lelo Fraire Campylobacter Not detected Normal NOT DETECTED [facility] Comment on above: Performed By: #### C MP, LIPID #### [facility] [address] [address] [address] Lelo Fraire Cryptosporidium Not detected Normal NOT DETECTED [facility] Comment on above: Performed By: #### C MP, LIPID #### [facility] [address] [place] [address] Dr. Lelo Fraire Cyclos. Cayetanensis Not detected Normal NOT DETECTED [facility] Comment on above: Performed By: #### C MP, LIPID #### [facility] [address] [place] [address] Dr. Lelo Fraire E. Coli O157 Not Applicable Normal Not Applicable [facility] Comment on above: Performed By: #### C MP, LIPID #### [facility] [address] [place] [address] Dr. Lelo Fraire E. histolytica Not detected Normal NOT DETECTED [facility] Comment on above: Performed By: #### C MP, LIPID #### [facility] [address] [place] [address] Dr. Lelo Fraire EAEC Not detected Normal NOT DETECTED [facility] Comment on above: Performed By: #### C MP, LIPID #### [facility] [address] [place] [address] Dr. Lelo Fraire EIEC Not detected Normal NOT DETECTED [facility] Comment on above: Performed By: #### C MP, LIPID #### [facility] [address] [place] [address] Dr. Lelo Fraire EPEC Not detected Normal NOT DETECTED [facility] Comment on above: Performed By: #### C MP, LIPID #### [facility] [address] [place] [address] Dr. Lelo Fraire ETEC Not detected Normal NOT DETECTED [facility] Comment on above: Performed By: #### C MP, LIPID #### [facility] [address] [place] [address] Dr. Lelo Fraire G. Lamblia Not detected Normal NOT DETECTED [facility] Comment on above: Performed By: #### C MP, LIPID #### [facility] [address] [address] [address] Lelo MARROQUIN CONTROLS PASSED Normal [facility] Comment on above: Performed By: #### C MP, LIPID #### [facility] [address] [address] [address] Lelo BURCIAGA HEADER GI PANEL BACTERIA Normal T [facility] Comment on above: Performed By: #### C MP, LIPID #### [facility] [address] [address] [address] Lelo ONEILL ECOLI GI PANEL DIARRHEAGENIC E.COLI / SHIGELLA Normal [facility] Comment on above: Performed By: #### C MP, LIPID #### [facility] [address] [place] [address] Dr. Lelo ONEILL INFO SEE BELOW Normal [facility] Comment on above: Result Comment: EAEC - Enteroaggregative E. Coli EPEC- Enteropathogenic E. Coli ETEC- Enterotoxigenic E. Coli lt/st STEC- Shigella-like toxin-producing E. Coli stx1/stx2 EIEC- Shigella/Enteroinvasive E. Coli Performed By: #### C MP, LIPID #### [facility] [address] [address] [address] Lelo ONEILL PARASITES GI PANEL PARASITES Normal [facility] Comment on above: Performed By: #### C MP, LIPID #### [facility] [address] [address] [address] Lelo ONEILL VIRUS GI PANEL VIRUSES Normal [facility] Comment on above: Performed By: #### C MP, LIPID #### [facility] [address] [address] [address] Lelo Fraire Norovirus GI/GII Not detected Normal NOT DETECTED [facility] Comment on above: Performed By: #### C MP, LIPID #### [facility] [address] [address] [address] Lelo Fraire P. Shigelloides Not detected Normal NOT DETECTED [facility] Comment on above: Performed By: #### C MP, LIPID #### [facility] [address] [place] [address] Dr. Lelo Fraire Rotavirus A Not detected Normal NOT DETECTED [facility] Comment on above: Performed By: #### C MP, LIPID #### [facility] [address] [address] [address] Lelo Fraire Salmonella Not detected Normal NOT DETECTED [facility] Comment on above: Performed By: #### C MP, LIPID #### [facility] [address] [address] [address] Lelo Fraire Sapovirus Not detected Normal NOT DETECTED [facility] Comment on above: Performed By: #### C MP, LIPID #### [facility] [address] [place] [address] Dr. Lelo Fraire STEC Not detected Normal NOT DETECTED [facility] Comment on above: Performed By: #### C MP, LIPID #### [facility] [address] [place] [address] Dr. Lelo Fraire Vibrio Not detected Normal NOT DETECTED [facility] Comment on above: Performed By: #### C MP, LIPID #### [facility] [address] [place] [address] Dr. Lelo Fraire Vibrio Cholera Not detected Normal NOT DETECTED [facility] Comment on above: Performed By: #### C MP, LIPID #### [facility] [address] [place] [address] Dr. Lelo Fraire Y. Enterocolitica Not detected Normal NOT DETECTED [facility] Comment on above: Performed By: #### C MP, LIPID #### [facility] [address] [place] [address] Dr. Lelo Fraire CRYSTALS, SYNOVIAL/JOINT FLU IDon 02-08-2022 Crystal,Synovial/Joint Fl Comment Normal None seen [facility] Comment on above: Result Comment: No c rystals seen under normal or polarized light. Performed By: #### C MP, LIPID #### [facility] [address] [place] [address] Dr. Lelo Fraire URIC ACID SERUMon 02-08-2022 Urate [Mass/Vol] 4.2 mg/dL Normal 2.6-6.0 [facility] Comment on above: Performed By: #### C ROXANNA, LIPID #### [facility] [address] [place] [address] Dr. Lelo Fraire CULTURE JOINT FLUIDon 2021 CULTURE JOINT FLUID Isolate 1 Staphylococcus warneri Light growth of ORGANISM 1 Staphylococcus warneri ANTIBIOTIC M.I.C RX STATUS Beta-Lactamase Pos POS F Cefoxitin Screen Neg NEG F Benzylpenicillin >=0.5 R F Oxacillin <=0.25 S F Gentamicin <=0.5 S F Ciprofloxacin <=0.5 S F Levofloxacin <=0.12 S F Inducible Clindamycin Resistance Neg NEG F Erythromycin >=8 R F Clindamycin <=0.25 S F Quinupristin/Dalfopr istin 0.5 S F Linezolid 2 S F Vancomycin 1 S F Tetracycline <=1 S F Rifampicin <=0.5 S F Trimethoprim/Sulfame thoxazole <=10 S F Normal [facility] Comment on above: Performed By: #### C ROXANNA, LIPID #### [facility] [address] [place] [address] Dr. Lelo Fraire GLUCOSE BODYFLUIDon 02-03-20 22 Glucose, Body Fluid 89 mg/dL Normal [facility] Comment on above: Result Comment: ____ : BODY FLUID TYPE : GLUCOSE : : : : : Amniotic Fluid : 45 - 76 : : : : : Bile, Clear : < 5 : : : : : Bile, Yellow : < 8 : : : : : Lymph : 48 - 200 : : : : : Nasal Secretion : < 10 : : : : : Pleural Fluid : 65 - 99 : : : : : Saliva : < 2 : : (Mixed Glands) : : : : : : Sweat : < 7 : : : : : Synovial Fluid : 65 - 99 : : : : : Tears : 76 - 288 : : : : . Issa WSatya V. Reference Intervals for Adults and Children 2007. Ninth edition (V9.1) [employer], [facility]; [place]: August 2008. Performed By: #### B FGLUC #### [facility] [address] [place] [address] Dr. Lelo Fraire PROTEIN, TOTAL, BODY FLUIDon 02-02-2022 Protein, Body Fluid 4.5 g/dL Normal [facility] Comment on above: Result Comment: ____ : BODY FLUID TYPE : TOTAL PROTEIN : : : : : Amniotic Fluid : <0.4 : : : : : : Nonmalignant: <3.0 : : Ascitic Fluid : Malignant: >3.0 : : : : : Bile, Clear : <0.9 : : : : : Bile, Yellow : 0.2 - 0.6 : : : : : Lymph : 2.2 - 6.0 : : : : : Human Milk : 1.9 - 2.0 : : : : : Nasal Secretion : 0.1 - 3.5 : : : : : Pancreatic : 0.0 - 0.1 : : Juice : (post stimulation) : : : : : : Transudate: <0.3 : : Pleural Fluid : Exudate: >0.3 : : : : : Saliva : 0.1 - 0.2 : : (Mixed Glands) : : : : : : Synovial Fluid : <2.5 : : : : : Tears : 0.8 - 0.9 : : : : . Issa WSatya V. Reference Intervals for Adults and Children 2008. Ninth Edition (V9.1) [employer], [facility]; [place]: August 2008. Performed By: #### T PBF #### [facility] [address] [place] [address] Dr. Lelo Fraire SYNOVIAL FLUID CELL COUNTon 02-02-2022 Clarity, Fluid Cloudy Abnormal Clear [facility] Comment on above: Performed By: #### C MP, LIPID #### [facility] [address] [place] [address] Dr. Lelo Fraire Color, Fluid Yellow Normal Yellow [facility] Comment on above: Performed By: #### C MP, LIPID #### [facility] [address] [place] [address] Dr. Lelo Fraire Comment: Normal [facility] Comment on above: Performed By: #### C MP, LIPID #### [facility] [address] [address] [address] Lelo Fraire Eosinophils, Fluid 0 % Normal Not Estab. [facility] Comment on above: Performed By: #### C MP, LIPID #### [facility] [address] [place] [address] Dr. Lelo Fraire Lining Cells, Synovial Fluid Normal [facility] Comment on above: Performed By: #### C MP, LIPID #### [facility] [address] [place] [address] Dr. Lelo Fraire Lymphocytes, Fluid 10 % Normal Not Estab. [facility] Comment on above: Performed By: #### C MP, LIPID #### [facility] [address] [place] [address] Dr. Lelo Fraire Macrophages 22 % Normal Not Estab. [facility] Comment on above: Performed By: #### C MP, LIPID #### [facility] [address] [place] [address] Dr. Lelo Fraire Neut, Fluid 68 % Normal Not Estab. [facility] Comment on above: Performed By: #### C MP, LIPID #### [facility] [address] [place] [address] Dr. Lelo Fraire Nucleated Cells, Synovial Fluid 55779 cells/uL Critically high 0-200 [facility] Comment on above: Performed By: #### C MP, LIPID #### [facility] [address] [place] [address] Dr. Lelo Fraire RBC, Fluid Rare Normal Not Estab. [facility] Comment on above: Performed By: #### C MP, LIPID #### [facility] [address] [place] [address] Dr. Lelo Fraire CULTURE ANAEROBICon 02-02-20 22 CULTURE ANAEROBIC Culture Observations: NO GROWTH OF ANAEROBES AT 72 HOURS. Normal [facility] Comment on above: Performed By: #### C MP, LIPID #### [facility] [address] [place] [address] Dr. Lelo Fraire GRAM STAINon 02-01-2022 COMMENTS NO ORGANISMS OBSERVED Normal [facility] Comment on above: Performed By: #### G STAIN #### [facility] [address] [address] [address] Lelo Fraire DIPHTHEROIDS Normal [facility] Comment on above: Performed By: #### G STAIN #### [facility] [address] [address] [address] Lelo Fraire EPITHELIALS Normal [facility] Comment on above: Performed By: #### G STAIN #### [facility] [address] [address] [address] Lelo Fraire FUNGAL ELEMENTS Normal [facility] Comment on above: Performed By: #### G STAIN #### [facility] [address] [address] [address] Lelo Fraire GRAM NEG BACILLI [facility] Comment on above: Performed By: #### G STAIN #### [facility] [address] [address] [address] Lelo MURCIA NEG DIPPLOCOCCI [facility] Comment on above: Performed By: #### G STAIN #### [facility] [address] [address] [address] Lelo MURCIA POS BACILLI Normal [facility] Comment on above: Performed By: #### G STAIN #### [facility] [address] [address] [address] Lelo Fraire GRAM POSITIVE COCCI Normal [facility] Comment on above: Performed By: #### G STAIN #### [facility] [address] [address] [address] Lelo Fraire GRAM STAIN SOURCE Right knee fluid Normal [facility] Comment on above: Performed By: #### G STAIN #### [facility] [address] [address] [address] Lelo Fraire GS_DIPTH [facility] Comment on above: Performed By: #### G STAIN #### [facility] [address] [address] [address] Lelo Fraire WBC FEW Normal [facility] Comment on above: Performed By: #### G STAIN #### [facility] [address] [place] [address] Dr. Lelo Fraire CBC AUTO DIFFon 01-06-2022 BASO # 0.0 103/ul Normal 0.0-0.1 [facility] Comment on above: Performed By: #### C MP, LIPID #### [facility] [address] [place] [address] Dr. Lelo Fraire Basophils/100 WBC (Bld) 0.3 % Normal 0.2-2.0 [facility] Comment on above: Performed By: #### C MP, LIPID #### [facility] [address] [place] [address] Dr. Lelo Fraire EO # 0.1 103/ul Normal 0.0-0.7 [facility] Comment on above: Performed By: #### C MP, LIPID #### [facility] [address] [place] [address] Dr. Lelo Fraire Eosinophils/100 WBC (Bld) 1.6 % Normal 0.9-7.0 [facility] Comment on above: Performed By: #### C MP, LIPID #### [facility] [address] [place] [address] Dr. Lelo Fraire Erythrocyte distribution width (RBC) [Ratio] 13.1 % Normal 11.0-15.0 [facility] Comment on above: Performed By: #### C MP, LIPID #### [facility] [address] [place] [address] Dr. Lelo Fraire Hematocrit (Bld) [Volume fraction] 43.8 % Normal 36.0-48.0 [facility] Comment on above: Performed By: #### C MP, LIPID #### [facility] [address] [place] [address] Dr. Lelo Fraire Hemoglobin (Bld) [Mass/Vol] 14.4 g/dL Normal 12.0-16.0 [facility] Comment on above: Performed By: #### C MP, LIPID #### [facility] [address] [place] [address] Dr. Lelo Fraire IG # 0.01 10e3/ul Normal 0.00-0.03 [facility] Comment on above: Performed By: #### C MP, LIPID #### [facility] [address] [address] [address] Lelo Fraire IG % 0.2 % Normal 0.0-0.5 [facility] Comment on above: Performed By: #### C MP, LIPID #### [facility] [address] [address] [address] Lelo Fraire LYMPH # 1.6 103/ul Normal 1.2-3.8 [facility] Comment on above: Performed By: #### C MP, LIPID #### [facility] [address] [address] [address] Lelo Fraire Lymphocytes/100 WBC (Bld) 25.6 % Normal 20.5-60.0 [facility] Comment on above: Performed By: #### C MP, LIPID #### [facility] [address] [place] [address] Dr. Lelo Fraire MANUAL DIFF REQ NO Normal [facility] Comment on above: Performed By: #### C MP, LIPID #### [facility] [address] [address] [address] Lelo Fraire MCH (RBC) [Entitic mass] 30.2 pg Normal 26.7-34.0 [facility] Comment on above: Performed By: #### C MP, LIPID #### [facility] [address] [address] [address] Lelo Fraire MCHC (RBC) [Mass/Vol] 32.9 g/dL Normal 29.9-35.2 [facility] Comment on above: Performed By: #### C MP, LIPID #### [facility] [address] [address] [address] Lelo Farire MCV (RBC) [Entitic vol] 91.8 fL Normal 81.0-99.0 [facility] Comment on above: Performed By: #### C MP, LIPID #### [facility] [address] [address] [address] Lelo Fraire MONO # 0.5 103/ul Normal 0.3-0.8 [facility] Comment on above: Performed By: #### C MP, LIPID #### [facility] [address] [place] [address] Dr. Lelo Fraire Monocytes/100 WBC (Bld) 8.1 % Normal 1.7-12.0 [facility] Comment on above: Performed By: #### C MP, LIPID #### [facility] [address] [place] [address] Dr. Lelo Fraire NEUT # 4.1 103/ul Normal 1.4-6.5 [facility] Comment on above: Performed By: #### C MP, LIPID #### [facility] [address] [place] [address] Dr. Lelo Fraire Neutrophils/100 WBC (Bld) 64.2 % Normal 43.0-75.0 [facility] Comment on above: Performed By: #### C MP, LIPID #### [facility] [address] [place] [address] Dr. Lelo Fraire Platelet mean volume (Bld) [Entitic vol] 10.3 fL Normal 9.5-13.5 [facility] Comment on above: Performed By: #### C MP, LIPID #### [facility] [address] [place] [address] Dr. Lelo Fraire PLT 251 103/ul Normal 150-450 [facility] Comment on above: Performed By: #### C MP, LIPID #### [facility] [address] [place] [address] Dr. Lleo Fraire RBC 4.77 106/ul Normal 4.20-5.40 [facility] Comment on above: Performed By: #### C MP, LIPID #### [facility] [address] [place] [address] Dr. Lelo Fraire WBC 6.3 103/ul Normal 4.0-11.0 [facility] Comment on above: Performed By: #### C MP, LIPID #### [facility] [address] [place] [address] Dr. Lelo Fraire FREE T3on 01-06-2022 FREE T3 2.40 pg/mlL Normal 2.18-3.98 [facility] Comment on above: Performed By: #### T SH, FT3, T4, CMP #### [facility] [address] [place] [address] Dr. Lelo Fraire PROF 14(COMP METB)on 022 Albumin [Mass/Vol] 4.2 g/dL Normal 3.4-5.0 [facility] Comment on above: Performed By: #### T SH, FT3, T4, CMP #### [facility] [address] [place] [address] Dr. Lelo Fraire Albumin/Globulin [Mass ratio] 1.1 {ratio} Normal [facility] Comment on above: Performed By: #### T SH, FT3, T4, CMP #### [facility] [address] [place] [address] Dr. Lelo Fraire ALP [Catalytic activity/Vol] 74 U/L Normal 46-116 [facility] Comment on above: Performed By: #### T SH, FT3, T4, CMP #### [facility] [address] [place] [address] Dr. Lelo Fraire ALT [Catalytic activity/Vol] 21 U/L Normal 14-59 [facility] Comment on above: Performed By: #### T SH, FT3, T4, CMP #### [facility] [address] [place] [address] Dr. Lelo Fraire Anion gap [Moles/Vol] 11.1 mmol/L Normal [facility] Comment on above: Performed By: #### T SH, FT3, T4, CMP #### [facility] [address] [place] [address] Dr. Lelo Fraire AST [Catalytic activity/Vol] 25 U/L Normal 15-37 [facility] Comment on above: Performed By: #### T SH, FT3, T4, CMP #### [facility] [address] [place] [address] Dr. Lelo Fraire Bilirubin [Mass/Vol] 0.2 mg/dL Normal 0.2-1.0 [facility] Comment on above: Performed By: #### T SH, FT3, T4, CMP #### [facility] [address] [place] [address] Dr. Lelo Fraire Calcium [Mass/Vol] 9.4 mg/dL Normal 8.5-10.1 [facility] Comment on above: Performed By: #### T SH, FT3, T4, CMP #### [facility] [address] [place] [address] Dr. Lelo Fraire Chloride [Moles/Vol] 99 mmol/L Normal 98-107 [facility] Comment on above: Performed By: #### T SH, FT3, T4, CMP #### [facility] [address] [place] [address] Dr. Lelo Fraire CO2 [Moles/Vol] 28.7 mmol/L Normal 21.0-32.0 [facility] Comment on above: Performed By: #### T SH, FT3, T4, CMP #### [facility] [address] [place] [address] Dr. Lelo Fraire Creatinine [Mass/Vol] 0.93 mg/dL Normal 0.55-1.02 [facility] Comment on above: Performed By: #### T SH, FT3, T4, CMP #### [facility] [address] [place] [address] Dr. Lelo Fraire EGFR-AF MALAGASY >60 Normal >=60 [facility] Comment on above: Performed By: #### T SH, FT3, T4, CMP #### [facility] [address] [place] [address] Dr. Lelo Fraire EGFR-NON AF MALAGASY >60 Normal >=60 [facility] Comment on above: Performed By: #### T SH, FT3, T4, CMP #### [facility] [address] [place] [address] Dr. Lelo Fraire Globulin (S) [Mass/Vol] 3.8 g/dL Normal [facility] Comment on above: Performed By: #### T SH, FT3, T4, CMP #### [facility] [address] [place] [address] Dr. Lelo Fraire Glucose [Mass/Vol] 88 mg/dL Normal 74-106 [facility] Comment on above: Performed By: #### T SH, FT3, T4, CMP #### [facility] [address] [address] [address] Lelo Fraire Potassium [Moles/Vol] 3.8 mmol/L Normal 3.5-5.1 [facility] Comment on above: Performed By: #### T SH, FT3, T4, CMP #### [facility] [address] [address] [address] Lelo Fraire Protein [Mass/Vol] 8.0 g/dL Normal 6.4-8.2 [facility] Comment on above: Performed By: #### T SH, FT3, T4, CMP #### [facility] [address] [address] [address] Lelo Fraire Sodium [Moles/Vol] 135 mmol/L Critically low 136-145 [facility] Comment on above: Performed By: #### T SH, FT3, T4, CMP #### [facility] [address] [address] [address] Lelo Fraire Urea nitrogen [Mass/Vol] 12.0 mg/dL Normal 7.0-18.0 [facility] Comment on above: Performed By: #### T SH, FT3, T4, CMP #### [facility] [address] [address] [address] Lelo Fraire Urea nitrogen/Creatinine [Mass ratio] 12.9 mg/mg Normal [facility] [facility] Comment on above: Performed By: #### T SH, FT3, T4, CMP #### [facility] [address] [address] [address] Lelo Fraire PROTIMEon 01-06-2022 INR Coag (PPP) [Relative time] 0.95 {INR} Normal [facility] Comment on above: Performed By: #### C MP, LIPID #### [facility] [address] [address] [address] Lelo Fraire INR GUIDELINES SEE BELOW Normal [facility] Comment on above: Result Comment: MONTSERRAT RED INR: 2.0 - 3.0 CONDITIONS NOT LISTED BELOW 2.5 - 3.5 FOR PROSTHETIC HEART VALVE REPLACEMENT 2.5 - 3.5 RECURRENT THROMBOSIS Performed By: #### C MP, LIPID #### [facility] [address] [place] [address] Dr. Lelo Fraire PT Coag (PPP) [Time] 10.3 s Normal 9.0-11.6 [facility] Comment on above: Performed By: #### C MP, LIPID #### [facility] [address] [place] [address] Dr. Lelo Fraire PTTon 01-06-2022 aPTT Coag (Bld) [Time] 25.8 s Normal 22.3-36.2 [facility] Comment on above: Performed By: #### C MP, LIPID #### [facility] [address] [place] [address] Dr. Lelo Fraire T4on 01-06-2022 T4 [Mass/Vol] 4.80 ug/dL Normal 4.80-13.90 [facility] Comment on above: Performed By: #### T SH, FT3, T4, CMP #### [facility] [address] [place] [address] Dr. Lelo Fraire TSHon 01-06-2022 TSH 4.084 uIU/mL Critically high 0.358-3.740 [facility] Comment on above: Performed By: #### T SH, FT3, T4, CMP #### [facility] [address] [place] [address] Dr. Lelo Fraire MRI KNEE RT WO CONon 022 MRI KNEE RT WO CON Begin Addendum #1 Under findings and impression the large fluid collection was inadvertently stated as a large joint effusion rather than a large prepatellar bursa fluid collection. The fluid collection extends 6.4 cm posterior medial to the margin of the patella and may represent a ruptured bursa, however, the fluid collection has fairly well-defined margins and the bursa may remain intact. Follow-up recommended. Original Report EXAMINATION: MRI KNEE RT WO CON HISTORY: Derangement of right knee ; acute medial knee pain, swelling, and bruising after recent fall COMPARISON: No relevant comparison available. TECHNIQUE: A complete multi-planar MRI was performed. FINDINGS: MEDIAL COMPARTMENT MEDIAL MENISCUS: No visible tear or significant degeneration. CARTILAGE: No visible defect. BONES: No marrow pathology, fracture, or significant arthropathy. MCL AND MEDIAL CAPSULE: Grade I sprain of the medial collateral ligament. LATERAL COMPARTMENT LATERAL MENISCUS: No visible tear or significant degeneration. CARTILAGE: No visible defect. BONES: No marrow pathology, fracture, or significant arthropathy. LCL/POSTEROLAT COMPLEX: Normal lateral collateral ligament, fascicles, lateral capsule and ligaments. ANTERIOR COMPARTMENT PATELLA: No marrow pathology, fracture, or significant arthropathy. CARTILAGE: Thinning of cartilage overlying medial and lateral facets. TENDONS: Normal. EFFUSION: Large joint effusion. ACL: Normal appearing ligament. PCL: Normal appearing ligament. MENISCOFEMORAL: Normal meniscofemoral ligaments. OTHER: Negative. IMPRESSION: 1. Mild strain of the medial collateral ligament. 2. Large joint effusion. 3. Grade II chondromalacia of patella. Normal [facility] CT FACIAL BONES WO CONon CT FACIAL BONES WO CON EXAMINATION: CT FACIAL BONES WO CON HISTORY: UNSPECIFIED INJURY OF HEAD, INITIAL ENCOUNTER COMPARISON: CT maxillofacial 11/25/2015 TECHNIQUE: Axial, Coronal, and Sagittal CT images created without IV contrast. Dose reduction techniques were achieved by using automated exposure control and/or adjustment of mA and/or kV according to patient size and/or use of iterative reconstruction technique. FINDINGS: FACIAL BONES: Mildly depressed and slightly leftward angulated fractures of the nasal bones bilaterally. SINUSES: No visible mass, significant fluid or mucosal thickening. NASAL FOSSA: No mass, fracture of the septum, or significant septal deviation. SKULL BASE: No mass or bone destruction. ORBITS: No visible mass, hematoma, edema or fracture. OTHER: Forehead skin laceration just right of midline with mild underlying edema/bruising. No radiopaque foreign body. IMPRESSION: 1. Bilateral nasal bone fractures with slightly depressed fragments and distal ends angle towards the left. No fracture of the nasal septum. 2. Forehead skin laceration with mild subcutaneous edema/bruising. No radiopaque foreign body. Electronically authenticated by: ADA VELASQUEZ Date: 2021-10-19 14:15 Normal [facility] CT HEAD WO CONon 10-19-2021 CT HEAD WO CON EXAMINATION: CT HEAD WO CON, 10/19/2021 1:33 PM EDT HISTORY: HEADACHE COMPARISON: None. TECHNIQUE: CT scan of the head was performed without IV contrast. CT dose reduction technique was used, including Automated Exposure Control. FINDINGS: BRAIN: No edema, hemorrhage, mass, acute infarction, or inappropriate atrophy. CSF SPACES: No hydrocephalus, subarachnoid hemorrhage, or mass. Appropriate for age. SKULL: No fracture, mass, or other significant visible lesion. SINUSES: No significant mucosal thickening or fluid on the limited views. ORBITS: No appreciable abnormality on the limited views. OTHER: Right nasal and frontal soft tissue injury/laceration IMPRESSION: Right extracranial soft tissue injury/laceration No acute intracranial abnormality Electronically authenticated by: TEVIN DE LA CRUZ Date: 2021-10-19 14:09 Normal [facility] ECHOCARDIO M/2D COMPLETEon 0 10-12-2021 ECHOCARDIO M/2D COMPLETE Patient: DEMARCUS VENTURA Exam Date: 10/12/2021 : 1970 Gender:F Ordering : DR TITO FREEDMAN . Admission #: [id number] Family : Order #: [id number] CLICK HERE TO VIEW EXAM ECHOCARDIOGRAM REPORT PROCEDURE: CARDIO PULMONARY ECHOCARDIO M/2D COMP INDICATIONS: Palpitations COMPARISON: None. DESCRIPTION: COMPLETE ECHOCARDIOGRAM Real-time transthoracic echocardiography with 2D, M-mode, spectral and color flow Doppler performed. QUALITY: Technical quality was good. 65 165# BP 134/88 LEFT VENTRICLE: Normal chamber size. Normal left ventricular wall thickness. LV EF: Normal left ventricular ejection fraction, (>55%). DIASTOLIC: Normal diastolic function. ATRIAL SEPTUM: Inadequately seen. LEFT ATRIUM: Appears normal in size. RIGHT ATRIUM: Appears normal in size. RIGHT VENTRICLE: Normal chamber size. Normal systolic function. TRICUSPID VALVE: Normal mobility and thickness. No stenosis with trivial regurgitation. No evidence of pulmonary hypertension. RVSP 25 mmHg MITRAL VALVE: Mildly thickened with normal mobility. No evidence of mitral valve stenosis. There is no mitral annular calcification. Trivial mitral regurgitation. AORTIC VALVE: Normal trileaflet appearance. No visible sclerosis. Normal leaflet mobility. No evidence of aortic valve stenosis. No aortic regurgitation. AORTIC ROOT: Normal diameter and appearance. PULMONIC VALVE: Normal thickness and mobility. No stenosis. Trivial regurgitation. PERICARDIUM: No evidence of pericardial effusion. IVC: Within normal limits. CONCLUSION: Global left ventricular systolic function is normal; visually estimated ejection fraction is 55 to 60%. Normal diastolic function. The right ventricle is normal in size and systolic function. No significant valvular abnormalities. Dictated by: Nick Junior M.D. on 10/13/2021 at 14:30 Approved by: Nick Junior M.D. on 10/13/2021 at 14:41 Normal [facility] INSULINon 10-03-2021 Insulin 11.8 uIU/mL Normal 2.6-24.9 [facility] Comment on above: Performed By: #### C MP, LIPID #### [facility] [address] [place] [address] Dr. Lelo Fraire CBC AUTO DIFFon 10-02-2021 BASO # 0.0 103/ul Normal 0.0-0.1 [facility] Comment on above: Performed By: #### C MP, LIPID #### [facility] [address] [place] [address] Dr. Lelo Fraire Basophils/100 WBC (Bld) 0.4 % Normal 0.2-2.0 [facility] Comment on above: Performed By: #### C MP, LIPID #### [facility] [address] [place] [address] Dr. Lelo Fraire EO # 0.2 103/ul Normal 0.0-0.7 [facility] Comment on above: Performed By: #### C MP, LIPID #### [facility] [address] [place] [address] Dr. Lelo Fraire Eosinophils/100 WBC (Bld) 2.1 % Normal 0.9-7.0 [facility] Comment on above: Performed By: #### C MP, LIPID #### [facility] [address] [place] [address] Dr. Lelo Fraire Erythrocyte distribution width (RBC) [Ratio] 12.6 % Normal 11.0-15.0 [facility] Comment on above: Performed By: #### C MP, LIPID #### [facility] [address] [address] [address] Lelo Fraire Hematocrit (Bld) [Volume fraction] 41.3 % Normal 36.0-48.0 [facility] Comment on above: Performed By: #### C MP, LIPID #### [facility] [address] [place] [address] Dr. Lelo Fraire Hemoglobin (Bld) [Mass/Vol] 13.8 g/dL Normal 12.0-16.0 [facility] Comment on above: Performed By: #### C MP, LIPID #### [facility] [address] [place] [address] Dr. Lelo Fraire IG # 0.01 10e3/ul Normal 0.00-0.03 [facility] Comment on above: Performed By: #### C MP, LIPID #### [facility] [address] [place] [address] Dr. Lelo Fraire IG % 0.1 % Normal 0.0-0.5 [facility] Comment on above: Performed By: #### C MP, LIPID #### [facility] [address] [place] [address] Dr. Lelo Fraire LYMPH # 2.0 103/ul Normal 1.2-3.8 [facility] Comment on above: Performed By: #### C MP, LIPID #### [facility] [address] [place] [address] Dr. Lelo Fraire Lymphocytes/100 WBC (Bld) 26.8 % Normal 20.5-60.0 [facility] Comment on above: Performed By: #### C MP, LIPID #### [facility] [address] [place] [address] Dr. Lelo Fraire MANUAL DIFF REQ NO Normal [facility] Comment on above: Performed By: #### C MP, LIPID #### [facility] [address] [place] [address] Dr. Lelo Fraire MCH (RBC) [Entitic mass] 30.5 pg Normal 26.7-34.0 [facility] Comment on above: Performed By: #### C MP, LIPID #### [facility] [address] [place] [address] Dr. Lelo Fraire MCHC (RBC) [Mass/Vol] 33.4 g/dL Normal 29.9-35.2 [facility] Comment on above: Performed By: #### C MP, LIPID #### [facility] [address] [place] [address] Dr. Lelo Fraire MCV (RBC) [Entitic vol] 91.4 fL Normal 81.0-99.0 [facility] Comment on above: Performed By: #### C MP, LIPID #### [facility] [address] [place] [address] Dr. Lelo Fraire MONO # 0.4 103/ul Normal 0.3-0.8 [facility] Comment on above: Performed By: #### C MP, LIPID #### [facility] [address] [place] [address] Dr. Lelo Fraire Monocytes/100 WBC (Bld) 5.4 % Normal 1.7-12.0 [facility] Comment on above: Performed By: #### C MP, LIPID #### [facility] [address] [place] [address] Dr. Lelo Fraire NEUT # 5.0 103/ul Normal 1.4-6.5 [facility] Comment on above: Performed By: #### C MP, LIPID #### [facility] [address] [place] [address] Dr. Lelo Fraire Neutrophils/100 WBC (Bld) 65.2 % Normal 43.0-75.0 [facility] Comment on above: Performed By: #### C MP, LIPID #### [facility] [address] [place] [address] Dr. Lelo Fraire Platelet mean volume (Bld) [Entitic vol] 10.0 fL Normal 9.5-13.5 [facility] Comment on above: Performed By: #### C MP, LIPID #### [facility] [address] [place] [address] Dr. Lelo Fraire PLT 265 103/ul Normal 150-450 [facility] Comment on above: Performed By: #### C MP, LIPID #### [facility] [address] [address] [address] Lelo Fraire RBC 4.52 106/ul Normal 4.20-5.40 [facility] Comment on above: Performed By: #### C MP, LIPID #### [facility] [address] [address] [address] Lelo Fraire WBC 7.6 103/ul Normal 4.0-11.0 [facility] Comment on above: Performed By: #### C MP, LIPID #### [facility] [address] [address] [address] Lelo Fraire GLYCOHEMOGLOBIN A1Con 2021 ADA RECOMMENDATION SEE BELOW Normal [facility] Comment on above: Result Comment: ADA RECOMMENDED LIMIT 4.0 - 6.0 ADA THERAPEUTIC TARGET < 7.0 ACTION SUGGESTED > 7.0 Performed By: #### A 1C #### [facility] [address] [place] [address] Dr. Lelo Fraire Glucose [Mass/Vol] 100 mg/dL Normal 74-106 [facility] Comment on above: Performed By: #### A 1C #### [facility] [address] [place] [address] Dr. Lelo Fraire Performed By: #### C MP, LIPID #### [facility] [address] [place] [address] Dr. Lelo Fraire HbA1c (Bld) [Mass fraction] 5.1 % Normal 4.5-6.2 [facility] Comment on above: Performed By: #### A 1C #### [facility] [address] [place] [address] Dr. Lelo Fraire LIPID PROFILEon 10-02-2021 CHOL-HDL RATIO NORM SEE BELOW Normal [facility] Comment on above: Result Comment: 3.3 - 4.4 LOW RISK 4.4 - 7.1 AVERAGE RISK 7.1 - 11.0 MODERATE RISK >11.0 HIGH RISK Performed By: #### C MP, LIPID #### [facility] [address] [place] [address] Dr. Lelo Fraire Cholesterol [Mass/Vol] 213 mg/dL Critically high <=200 [facility] Comment on above: Performed By: #### C MP, LIPID #### [facility] [address] [address] [address] Lelo Fraire Cholesterol in HDL [Mass/Vol] 86 mg/dL Critically high 40-60 [facility] Comment on above: Performed By: #### C MP, LIPID #### [facility] [address] [address] [address] Lelo Fraire Cholesterol in LDL [Mass/Vol] 114.8 mg/dL Normal [facility] Comment on above: Performed By: #### C MP, LIPID #### [facility] [address] [address] [address] Lelo Fraire Cholesterol.total/Tatiana sterol in HDL [Mass ratio] 2.5 {ratio} Normal [facility] Comment on above: Performed By: #### C MP, LIPID #### [facility] [address] [place] [address] Dr. Lelo Fraire HDL NORMAL > or = 60 mg/dl - LOW CARDIOVASCULAR RISK <40 mg/dl - HIGH CARDIOVASCULAR RISK Normal [facility] Comment on above: Performed By: #### C MP, LIPID #### [facility] [address] [place] [address] Dr. Lelo Fraire LDL CALC NORMAL SEE BELOW Normal [facility] Comment on above: Result Comment: <100 mg/dl OPTIMAL 100 - 129 mg/dl NEAR OR ABOVE OPTIMAL 130 - 159 mg/dl BORDERLINE HIGH 160 - 189 mg/dl HIGH >190 mg/dl VERY HIGH Performed By: #### C MP, LIPID #### [facility] [address] [address] [address] Lelo Fraire Triglyceride [Mass/Vol] 61 mg/dL Normal <=150 T [facility] Comment on above: Performed By: #### C MP, LIPID #### [facility] [address] [place] [address] Dr. Lelo Fraire VLDL CALC 12.2 mg/dL Normal [facility] Comment on above: Performed By: #### C MP, LIPID #### [facility] [address] [place] [address] Dr. Lelo Fraire PROF 14(COMP METB)on 022 Albumin [Mass/Vol] 4.0 g/dL Normal 3.4-5.0 [facility] Comment on above: Performed By: #### C MP, LIPID #### [facility] [address] [place] [address] Dr. Lelo Fraire Albumin/Globulin [Mass ratio] 1.3 {ratio} Normal [facility] Comment on above: Performed By: #### C MP, LIPID #### [facility] [address] [place] [address] Dr. Lelo Fraire ALP [Catalytic activity/Vol] 45 U/L Critically low 46-116 [facility] Comment on above: Performed By: #### C MP, LIPID #### [facility] [address] [place] [address] Dr. Lelo Fraire ALT [Catalytic activity/Vol] 32 U/L Normal 14-59 [facility] Comment on above: Performed By: #### C MP, LIPID #### [facility] [address] [place] [address] Dr. Lelo Fraire Anion gap [Moles/Vol] 10.8 mmol/L Normal [facility] Comment on above: Performed By: #### C MP, LIPID #### [facility] [address] [place] [address] Dr. Lelo Fraire AST [Catalytic activity/Vol] 30 U/L Normal 15-37 [facility] Comment on above: Performed By: #### C MP, LIPID #### [facility] [address] [place] [address] Dr. Lelo Fraire Bilirubin [Mass/Vol] 0.3 mg/dL Normal 0.2-1.0 [facility] Comment on above: Performed By: #### C MP, LIPID #### [facility] [address] [place] [address] Dr. Lelo Fraire Calcium [Mass/Vol] 9.1 mg/dL Normal 8.5-10.1 [facility] Comment on above: Performed By: #### C MP, LIPID #### [facility] [address] [address] [address] Lelo Fraire Chloride [Moles/Vol] 100 mmol/L Normal 98-107 [facility] Comment on above: Performed By: #### C MP, LIPID #### [facility] [address] [address] [address] Lelo Fraire CO2 [Moles/Vol] 29.8 mmol/L Normal 21.0-32.0 [facility] Comment on above: Performed By: #### C MP, LIPID #### [facility] [address] [address] [address] Lelo Fraire Creatinine [Mass/Vol] 0.82 mg/dL Normal 0.55-1.02 [facility] Comment on above: Performed By: #### C MP, LIPID #### [facility] [address] [place] [address] Dr. Lelo Fraire EGFR-AF MALAGASY >60 Normal >=60 [facility] Comment on above: Performed By: #### C MP, LIPID #### [facility] [address] [place] [address] Dr. Lelo Fraire EGFR-NON AF MALAGASY >60 Normal >=60 [facility] Comment on above: Performed By: #### C MP, LIPID #### [facility] [address] [address] [address] Lleo Fraire Globulin (S) [Mass/Vol] 3.1 g/dL Normal T [facility] Comment on above: Performed By: #### C MP, LIPID #### [facility] [address] [place] [address] Dr. Lelo Fraire Potassium [Moles/Vol] 3.6 mmol/L Normal 3.5-5.1 [facility] Comment on above: Performed By: #### C MP, LIPID #### [facility] [address] [place] [address] Dr. Lelo Fraire Protein [Mass/Vol] 7.1 g/dL Normal 6.4-8.2 [facility] Comment on above: Performed By: #### C MP, LIPID #### [facility] [address] [address] [address] Lelo Fraire Sodium [Moles/Vol] 137 mmol/L Normal 136-145 [facility] Comment on above: Performed By: #### C MP, LIPID #### [facility] [address] [address] [address] Lelo Fraire Urea nitrogen [Mass/Vol] 13.0 mg/dL Normal 7.0-18.0 [facility] Comment on above: Performed By: #### C MP, LIPID #### [facility] [address] [address] [address] Lelo Fraire Urea nitrogen/Creatinine [Mass ratio] 15.9 mg/mg Normal [facility] Comment on above: Performed By: #### C MP, LIPID #### [facility] [address] [address] [address] Lelo Fraire ASYMPTOMATIC COVID-19 ANTIGE Non 09-23-2021 EUA Statement SEE BELOW Normal [facility] Comment on above: Result Comment: This test has not been FDA cleared or approved, but has been authorized by the FDA under an Emergency Use Authorization (EUA) for use by authorized laboratories certified under CLIA that meet the requirements to perform moderate or high complexity testing. This test has been authorized only for the detection of proteins from SARS-CoV-2, not for any other viruses or pathogens. The emergency use of this test is authorized for the duration of the declaration that circumstances exist justifying the authorization of emergency use of in vitro diagnostic tests for detection and/or diagnosis of Covid-19 under section 564(b)(1) of the Act, 21 U.S.C. 360bbb-3(b)(1), unless the declaration is terminated or authorization is revoked sooner. Performed By: #### C MP, LIPID #### [facility] [address] [address] [address] Lelo Fraire SARS-CoV-2 (COVID-19) RNA DAVID+probe Ql (Unsp spec) Negative Normal NEGATIVE [facility] Comment on above: Result Comment: Nega tive results are presumptive. They do not preclude infection and should not be used as the sole basis for treatment decisions. Additional confirmatory testing by a molecular method should be considered. Performed By: #### C MP, LIPID #### [facility] [id number] Lelo Fraire [facility] SARS-CoV-2 (COVID-19) RNA DAVID+probe Ql (Unsp spec) Detected Critically abnormal NOT DETECTED [facility] Comment on above: Result Comment: This test is not yet approved or cleared by the [place] FDA. When there are no FDA-approved or cleared tests available, and other criteria are met, FDA can make tests available under an emergency access mechanism called an Emergency Use Authorization (EUA). The EUA for this test is supported by the [employer] of Health and Human Service's declaration that circumstances exist to justify the emergency use of in vitro diagnostics for the detection and/or diagnosis of the virus that causes COVID-19. This EUA will remain in effect for the duration of the COVID-19 declaration justifying emergency of IVDs, unless it is terminated or revoked by the FDA (after which the test may no longer be used). Performed By: #### C MP, LIPID #### [facility] [address] [place], [place] [address] Dr. Lelo Fraire Vital Signs Date Time Vital Sign Value Performing Clinician Facility 12-09-2022 12:27-0400 Diastolic blood pressure 60 mm[Hg] PHYSICIAN [facility] 12-09-2022 12:27-0400 Heart rate 61 /min PHYSICIAN [facility] 12-09-2022 12:27-0400 Systolic blood pressure 103 mm[Hg] PHYSICIAN [facility] 10-07-2022 15:15-0400 Body height 165.1 cm Daren Boo Other [employer] Other 10-07-2022 15:15-0400 Body mass index (BMI) [Ratio] 29.62 kg/m2 Daren Boo Other [employer] Other 10-07-2022 15:15-0400 Body temperature 97.6 [degF] Daren Boo Other [employer] Other 10-07-2022 15:15-0400 Body weight 80.74 kg Daren Boo Other [employer] Other 10-07-2022 15:15-0400 Diastolic blood pressure 81 mm[Hg] Daren Boo Other [employer] Other 10-07-2022 15:15-0400 Systolic blood pressure 129 mm[Hg] Daren Boo Other [employer] Other 09-06-2022 22:30-0400 Diastolic blood pressure 63 mm[Hg] MD Martin Chao Work Phone: [facility] 09-06-2022 22:30-0400 Heart rate 60 /min MD Martin Chao Work Phone: [facility] 09-06-2022 22:30-0400 Respiratory rate 18 /min MD Martin Chao Work Phone: [facility] 09-06-2022 22:30-0400 SaO2% (BldA) [Mass fraction] 100 % MD Martin Chao Work Phone: [facility] 09-06-2022 22:30-0400 Systolic blood pressure 129 mm[Hg] MD Martin Chao Work Phone: [facility] 09-06-2022 17:31-0400 Body height 165.1 cm MD Martin Chao Work Phone: [facility] 09-06-2022 17:31-0400 Body temperature 98.3 [degF] MD Martin Chao Work Phone: [facility] 09-06-2022 17:31-0400 Body weight 53.5 kg MD Martin Chao Work Phone: [facility] Encounters Encounter Date Encounter Type Care Provider Facility Start: 12-09-2022 End: 12-09-2022 ambulatory PHYSICIAN NO FAMILY Facility:[facility] Start: 12-09-2022 End: 12-09-2022 ambulatory PHYSICIAN NO FAMILY [facility] Work Phone: Start: 12-09-2022 End: 12-09-2022 Discharged Recurring PHYSICIAN NO FAMILY [facility]-Infusion Therapy - O/P Work Phone: Start: 12-06-2022 End: 12-06-2022 ambulatory PHYSICIAN NO FAMILY Facility:[facility] Start: 12-06-2022 End: 12-06-2022 ambulatory MD Daren Boo Work Phone: [facility] Work Phone: Start: 12-06-2022 End: 12-06-2022 Departed Referred MD Daren Boo Work Phone: [facility]-Lab Main [place] Work Phone: Start: 10-07-2022 End: 10-07-2022 ambulatory Daren Boo Other [employer] Other Start: 10-07-2022 Office outpatient ne w 45 minutes Daren Boo [facility] Infectious Disease Start: 09-06-2022 End: 09-07-2022 Emergency department patient visit Martin Chao Facility:[facility] Start: 09-06-2022 End: 09-06-2022 Emergency department patient visit MD Martin Chao Work Phone: [facility]-Emergency Room Work Phone: Start: 05-18-2022 End: 05-18-[address] TITO FREEDMAN . Facility:[facility] Start: 03-03-2022 End: 06-12-[address] TEVIN DE LA CRUZ Facility:[facility] Start: 03-01-2022 End: 03-02-[address] TEVIN DE LA CRUZ Facility:[facility] Start: 02-08-2022 End: 02-09-[address] TITO FREEDMAN . Facility:[facility] Start: 02-01-2022 End: 02-01-2022 ambulatory MR DAVE GRIFFIN . Facility:[facility] Start: 01-14-2022 End: 01-14-2022 ambulatory CLARK NAYELI . Facility:[facility] Start: 01-11-2022 End: 01-12-[address] TITO FREEDMAN . Facility:[facility] Start: 01-06-2022 End: 01-07-[address] TITO FREEDMAN . Facility:[facility] Start: 12-01-2021 End: 12-02-[address] TITO FREEDMAN . Facility:[facility] Start: 10-29-2021 End: 10-30-[address] ADA VELASQUEZ Facility:[facility] Start: 10-19-2021 End: 10-19-[address] TEVIN DE LA CRUZ Facility:[facility] Start: 10-12-2021 End: 10-13-[address] TITO FREEDMAN . Facility:[facility] Start: 10-02-2021 End: 10-03-[address] TITO FREEDMAN . Facility:[facility] Start: 09-23-2021 End: 09-23-[address] TITO FREEDMAN . Facility:[facility] Start: 09-16-2021 End: 09-16-[address] TITO FREEDMAN . Facility:[facility] Start: 07-07-2021 End: 07-08-[address] TITO FREEDMAN . Facility:[facility] Start: 12-27-2016 End: 12-28-2016 Ambulatory DEFAULT PHYSICIAN Facility:[facility] Plan of Treatment Date Care Activity Detail Author Start: 12-06-2022 Methicillin resistant Staphylococcus aureus culture MRSA Culture [facility] Start: 12-06-2022 MRSA Culture MRSA Culture [facility] Methicillin resistan t Staphylococcus aureus [Presence] in Unspecified specimen by Organism specific culture [facility] Patient Education Abscess Incisi on and Drainage ED Preseptal Cellulitis ED [facility] Work Phone: Patient referral [facility] Work Phone: Payers Date Payer Category Payer Unknown [id number] 2.16.84 [id number] 1970 Unknown [id number] 2.16.84 0.1.185741.3.579.2.593 1970 Unknown [id number] .16.84 0.1.137298.3.579.2.593 1971 Unknown [id number] .16.84 0.1.703350.3.579.2.593 1971 Unknown [id number] .16.84 0.1.600464.3.579.2.593 1971 Unknown [id number] .16.84 0.1.857939.3.579.2.593 1971 Unknown [id number] .16.84 0.1.074667.3.579.2.593 1971 Unknown [id number] .16.84 0.1.940489.3.579.2.593 1971 Unknown [id number] .16.84 0.1.093987.3.579.2.593 1971 Unknown [id number] .16.84 0.1.394295.3.579.2.593 1971 Unknown [id number] .16.84 0.1.527028.3.579.2.593 1971 Unknown [id number] .16.84 0.1.393954.3.579.2.593 1971 Unknown [id number] .16.84 0.1.478414.3.579.2.593 1971 Unknown [id number] .16.84 0.1.247584.3.579.2.593 1958 Self-pay 1958 Unknown [id number] Unknown Unknown [id number] .16.84 0.1.998967.3.579.2.593 Unknown [id number] .16.84 0.1.232509.3.579.2.593 Unknown [id number] 2.16.8 40.1.601146.3.579.2.531 Unknown [id number] 2.16.8 40.1.438485.3.579.2.531 Unknown [id number] 2.16.8 40.1.409036.3.579.2.531 Social History Date Type Detail Facility Start: 09-06-2022 End: 09-13-2022 Tobacco smoking status NHIS Never smoked tobacco (finding) [facility] Start: 1970 Sex Assigned At Female [facility] Sex Assigned At Sex Assigned At Bir th [employer] Other Evaluation note 10-07-2022 Note Date & Type Note Facility 10-07-2022 Evaluation note Encounter Date Diagnosis Assessment Notes Sep, MRSA (methicillin resistant staph aureus) culture positive (ICD-10 - Z22.322) Patient is without acute active infection today. Main discussions were had today with regard to how to try to prevent these from recurring. We discussed MRSA colonization and how to hopefully cut back on the colonization in and around her environment. Hibiclens washes 3 times a week were discussed and appropriately gone over how to use. Given the facial abscess on her right eyebrow Hibiclens really is not appropriate for neck or above use. We discussed using disposable razors as well as with laundering undergarments sheets and towels in a diluted bleach solution and then put on high heated dry. She is going to attempt this conservative measure at home and I also gave her a prescription for Clindagel/clind amycin phosphate gel to be used over any concerns of a new area that could be an early abscess. We also discussed not picking or squeezing any of these abscessed areas. In the event this conservative measure above do not prevent the infections/absc esses from occurring then we will attempt systemic therapy with doxycycline plus rifampin to try to eradicate further colonization. Sep, MRSA (methicillin resistant Staphylococcus aureus) colonization (ICD-10 - Z22.322) [place] [employer] Other Clinical Note 03-01-2022 Note Date & Type Note Facility 03-01-2022 Note PROCEDURE: XR FOOT L T MIN 3 VIEWS COMPARISON: None. HISTORY: Pain in left foot FINDINGS: BONES:No acute fracture or dislocation. Minimal enthesopathic spurring of the calcaneus with no acute bony abnormality SOFT TISSUES:Mild diffuse swelling of the first toe EFFUSION:None visible. OTHER: Negative. IMPRESSION: Mild swelling of the first toe Electronically authenticated by: TEVIN DE LA CRUZ Date: 2022-03-01 15:05 [facility] Clinical Note 10-19-2021 Note Date & Type Note Facility 10-19-2021 Note PROCEDURE: CT CSPINE WO CON COMPARISON: None. HISTORY: UNSPECIFIED INJURY OF HEAD, INITIAL ENCOUNTER TECHNIQUE: Axial, Coronal, and Sagittal CT images obtained without IV contrast. Dose reduction techniques were achieved by using automated exposure control and/or adjustment of mA and/or kV according to patient size and/or use of iterative reconstruction technique. FINDINGS: PARASPINAL AREA: Normal with no visible mass. DISCS: Multilevel mild disc space narrowing most significant C6-C7 BONES: Normal alignment with no acute fracture or spondylolisthesis. Mild to moderate posterior degenerative spondylosis C3-C7 encroaching on the central canal up to 4 mm. OTHER: Negative. IMPRESSION: Mild to moderate degenerative changes No acute fracture Electronically authenticated by: TEVIN DE LA CRUZ Date: 2021-10-19 14:19 [facility] Clinical Note 10-19-2021 Note Date & Type Note Facility 10-19-2021 Note PROCEDURE: XR FEMUR RT COMPARISON: None. HISTORY: Pain FINDINGS: BONES:No fracture, acute abnormality, or significant arthropathy. SOFT TISSUES:Negative. No visible soft tissue swelling. EFFUSION:None visible. OTHER: IUD in the pelvis IMPRESSION: No acute traumatic fracture Electronically authenticated by: TEVIN DE LA CRUZ Date: 2021-10-19 14:10 [facility] Evaluation note Note Date & Type Note Facility Evaluation note [facility] Phone: History general Narrative - Reported Note Date & Type Note Facility History general Narrative - Reported Type Medical History vein stripping - leg edema Medical History acne Medical History anxiety Medical History history of CDIFF Surgical History vein stripping - bilateral 1996 Surgical History bunionectomy - right foot 2002 Surgical History hysterectomy Surgical History 3 I & D (2 upper thigh and 1 ab ove eye) Hospitalization History childbirth [employer] Other Hospital Discharge instructions Note Date & Type Note Facility Hospital Discharge instructions Additional Instructions Packing should be removed in 2 to 3 days. We are happy to see you, or you can have it taken out where it is convenient for you. I would like someone to look at it to make sure that it does not need to be repacked. This is not likely but I do not want you to get another abscess. You were given IV Dalvance (dalbavancin) here. This is a long-acting IV antibiotic. You do not need oral antibiotics with this. We are happy to see you if you have any further problems or concerns. [facility] Work Phone: Summary Purpose Family History No Family History Records FoundNo Family History Records FoundNo Family History Records Found Advance Directives No Advanced Directives Records Found Advance Directive Response Recorded Date/ Time Advance Directives No September 06 8:22pm Chief Complaint and Reason for Visit Chief Complaint SENT BY DOCTOR Chief Complaint H00.031 R eye cellulitis Additional Source Comments INFORMATION SOURCE (unrecogn ized section and content) DATE CREATED AUTHOR 08/16/2017 [facility] DATE CREATED AUTHOR AUTHOR'S ORGANIZ ATION 06/12/2022 [facility] DATE CREATED AUTHOR AUTHOR'S ORGANIZ ATION 12/18/2022 [facility] Care Teams (unrecognized sec tion and content) Team Status: Active Member Role Status Dates Martin Chao MD Primary Care Provider Active Team Status: Inactive Member Role Status Martha Chao MD Primary Care Provider Active Segundo Macias Jr, MD Emergency Provider Active Team Status: Inactive Member Role Status Dates Daren Boo MD Attending Provider Active Team Status: Active Member Role Status Dates PHYSICIAN NO FAMILY Primary Care Provider Active Team Status: Inactive Member Role Status Dates Daren Boo MD Attending Provider Active PHYSICIAN NO FAMILY Primary Care Provider Active Team Status: Inactive Member Role Status Dates PHYSICIAN NO FAMILY Primary Care Provider Active Daren Boo MD Attending Provider Active Goals (unrecognized section and content) Goals may be documented in a n alternate sectionNo InformationGoals may be documented in an alternate sectionGoals may be documented in an alternate section FOR RECORDS PERTAINING TO PATIENTS WHO ARE OR HAVE BEEN ENROLLED IN A CHEMICAL DEPENDENCY/SUBSTANCEABUSE PROGRAM, SOME INFORMATION MAY BE OMITTED. This clinical summary was aggregated from multiple sources. Caution should be exercised in using it in the provision of clinical care. This summary normalizes information from multiple sources, and as a consequence, information in this document may materially change the coding, format and clinical context of patient data. In addition, data may be omitted in some cases. CLINICAL DECISIONS SHOULD BE BASED ON THE PRIMARY CLINICAL RECORDS. [facility]. provides no warranty or guarantee of the accuracy or completeness of information in this document.
== END 2023-04-06 13:44 | disposition home or self-care (01) ==
LOC: MRI 13:43
PROVIDERS: Visit Provider Family Medicine
DX: R44.2 Other hallucinations (principal)
CPT/HCPCS: 70553; A9575

== ENCOUNTER 2023-04-14 07:39 | Outpatient (RCR) | payer BC, SELFPAY ==
[2023-04-14] MEDS: DALBAVANCIN HCL 1,500 MG in DEXTROSE 5 % IN WATER 250 ML 650 MG IV (12:00)
[2023-04-14] MEDS: DEXTROSE 5 % IN WATER 250 ML 100 ML IV (12:00)
[2023-04-14 12:49] VITALS: BP 125/74; PULSE 71; RESP 16; TEMP 37.3; O2SAT 99
--- NOTE | 2023-04-14 13:01 | PC.NURSE ---
1145 Arrrival ambulatory to chair 2. Alert oriented. Here for IV antibiotic infusion. 1150 @24 IV initiated rt forearm on 1st attempt, excellent blood return noted, tolerated well.
--- NOTE | 2023-04-14 13:03 | PC.NURSE ---
1200 IV D5W initated at kvo, IV Antibiotic piggybacked into D5W.
--- NOTE | 2023-04-14 13:05 | PC.NURSE ---
1230 Tolerating infusion without any s/s of reaction. reclined in chair.
--- NOTE | 2023-04-14 13:06 | PC.NURSE ---
1250 infusion completed, flushed line with mainline D5W. dc'd IV, catheter intact site clear, cottonball applied, secured with coban. Released ambulatory
== END 2023-04-21 23:59 | disposition home or self-care (01) ==
LOC: INF 07:39
PROVIDERS: Visit Provider Internal Medicine Infectious Disease
DX: L02.91 Cutaneous abscess, unspecified (principal); B95.62 Methicillin resistant Staphylococcus aureus infection as the cause of diseases classified elsewhere
CPT/HCPCS: 96365; J0875

== ENCOUNTER 2023-08-15 13:42 | Outpatient (RCR) | payer BC, SELFPAY ==
[2023-08-15 14:35] VITALS: BP 118/75; PULSE 54; TEMP 37.2; O2SAT 98
[2023-08-15] MEDS: DEXTROSE 5 % IN WATER 250 ML 500 ML IV (14:45)
[2023-08-15] MEDS: DALBAVANCIN HCL 1,500 MG in DEXTROSE 5 % IN WATER 250 ML 650 MG IV (15:01)
--- NOTE | 2023-08-15 15:01 | PC.NURSE ---
1435: Pt. to [facility] amb. for IV infusion. Seated in recliner. VSS. IV initiated to left ac without difficulty, see documentation. Pt tolerated without c/o. 1445: IV D5w infusing at this time prior infusion. Pt. given warm blanket. 1501: IV Dalvance initiated at this time.
== END 2023-08-17 10:17 | disposition home or self-care (01) ==
LOC: INF 13:42
PROVIDERS: Visit Provider Internal Medicine Infectious Disease
DX: A49.02 Methicillin resistant Staphylococcus aureus infection, unspecified site (principal)
CPT/HCPCS: 96365; J0875

== ENCOUNTER 2023-08-17 14:32 | Emergency (ER) | payer BC, SELFPAY ==
[2023-08-17 14:40] VITALS: BP 134/88; PULSE 76; TEMP 36.8; O2SAT 98; BMI 23.0
[2023-08-17] MEDS: LIDOCAINE HCL 1% 100 MG/10 ML MDV INJ (14:51)
--- NOTE | 2023-08-17 15:24 | ED.SKABFB1 ---
HPI - Skin/Abscess/Foreign Bdy General Chief complaint: Eye Problems Stated complaint: EYE SWELLING Time Seen by Provider: 08/17/23 14:36 Source: patient Mode of arrival: walk-in History of Present Illness HPI narrative: 53-year-old female presents to the emergency department for an area of swelling by the left eye. She has a history of recurrent MRSA infections and has had to have a few drained in the past. This time she has had it for about 5 days and 2 days ago she got and injection of Dalvance. It has not improved and the swelling has increased slightly. No drainage or fever. In the remote past she had been on Bactrim but had gotten C. difficile infections. Related Data Home Medications ?Medication ?Instructions ?Recorded ?Confirmed hydrochlorothiazide 25 mg tablet 25 mg PO DAILY 12/07/22 08/17/23 metoprolol tartrate 25 mg tablet 25 mg PO Q12H 12/07/22 08/17/23 pramipexole 0.5 mg tablet 0.5 mg PO .qhs 12/07/22 08/17/23 pramipexole 0.375 mg 0.375 mg PO Q24H 08/17/23 08/17/23 tablet,extended release 24 hr venlafaxine 150 mg 150 mg PO Q24H 08/17/23 08/17/23 capsule,extended release 24 hr Allergies Allergy/AdvReac Type Severity Reaction Status Date / Time No Known Drug Allergies Allergy Verified 12/07/22 14:00 Review of Systems ROS Narrative A ten point review of systems is negative except as noted above. Exam Narrative Exam Narrative: Nurses note and vital signs reviewed and patient is not hypoxic. General: The patient appears well and in no apparent distress. Patient is resting comfortably on cart. Skin: Warm, dry, no pallor noted. There is no rash noted. Head: Normocephalic, atraumatic Eye: Normal conjunctiva, no drainage, EOMI. At the inferior medial border of the eyebrow is an indurated area without skin erythema or open area or drainage. There is no fluctuance. Ears, Nose, Mouth, and Throat: oral mucosa is moist. Nares patent. Cardiovascular: Regular Rate and Rhythm Respiratory: Patient is in no distress, no accessory muscle use GI: Nontender Musculoskeletal: No joint swelling Neurological: Awake and alert Psychiatric: Cooperative Constitutional Vital Signs, click to edit/add: Last Vital Signs Temp 98.2 F 08/17/23 14:40 Pulse 76 08/17/23 14:40 Resp 18 08/17/23 14:40 BP 134/88 08/17/23 14:40 Pulse Ox 98 08/17/23 14:40 O2 Del Method Room Air 08/17/23 14:40 Course Vital Signs Vital signs: Vital Signs Temperature 98.2 F 08/17/23 14:40 Pulse Rate 76 08/17/23 14:40 Respiratory Rate 18 08/17/23 14:40 Blood Pressure 134/88 08/17/23 14:40 Pulse Oximetry 98 08/17/23 14:40 Oxygen Delivery Method Room Air 08/17/23 14:40 Temperature 98.2 F 08/17/23 14:40 Pulse Rate 76 08/17/23 14:40 Respiratory Rate 18 08/17/23 14:40 Blood Pressure 134/88 08/17/23 14:40 Pulse Oximetry 98 08/17/23 14:40 Oxygen Delivery Method Room Air 08/17/23 14:40 MDM - Skin/Abscess/Foreign Bdy MDM Narrative Medical decision making narrative: The following procedure was performed by me. Local infiltration was carried out with 1% lidocaine without epinephrine to the affected area. This resulted in good skin anesthesia. The area was prepped with Betadine x 3 and draped sterilely. Using a #11 blade the indurated area was incised and some bleeding occurred. No purulent drainage occurred. No complications and she tolerated the procedure well. Wound culture obtained and ordered. She will follow-up with her infectious disease physician and will return to ED if symptoms worsen. Treatment diagnosis and follow-up were discussed with the patient. Differential Diagnosis Differential diagnosis: Likely abscess of skin or subcutaneous tissue and cellulitis Discharge Plan Discharge Stand Alone Forms: Portal Instructions Chief Complaint: Eye Problems Clinical Impression: Abscess Patient Disposition: Home, Self-Care Time of Disposition Decision: 15:22 Condition: Good Mode of Transportation: Private Vehicle Prescriptions / Home Meds: No Action pramipexole 0.375 mg tablet extended release 24 hr 0.375 mg PO Q24H venlafaxine 150 mg capsule,extended release 24hr 150 mg PO Q24H hydrochlorothiazide 25 mg tablet 25 mg PO DAILY metoprolol tartrate 25 mg tablet 25 mg PO Q12H pramipexole 0.5 mg tablet 0.5 mg PO .qhs Print Language: Greek Instructions: Abscess (ED), Warm Compress or Soak (ED) Referrals: Physician,Non-Staff, MD [Primary Care Provider] - 1 week
== END 2023-08-17 15:26 | disposition home or self-care (01) ==
PROVIDERS: Emergency Provider Emergency Medicine
DX: L02.01 Cutaneous abscess of face (principal); Z86.14 Personal history of Methicillin resistant Staphylococcus aureus infection
CPT/HCPCS: 10060; 87070; 99283

== ENCOUNTER 2023-08-18 10:41 | Outpatient (RCR) | payer BC, SELFPAY ==
[2023-08-18] MEDS: METHYLPREDNISOLONE ACETATE 40 MG/ML VIAL IM (10:45)
[2023-08-18] MEDS: METHYLPREDNISOLONE ACETATE 80 MG/ML VIAL IM (10:45)
--- NOTE | 2023-08-18 10:58 | PC.NURSE ---
1040: Pt. to [facility] amb. for steroid injection. Denies questions. Medicated with Depo-Medrol, 120mg, IM to left gluteal area. No bleeding to site, bandaid placed prophylactically. Pt. tolerated without c/o pain. 1047: Pt. without c/o. No bleeding to site. Pt. d/c'd amb. to work.
== END 2023-08-19 10:46 | disposition home or self-care (01) ==
LOC: INF 10:41
PROVIDERS: Visit Provider Family Medicine
DX: R60.0 Localized edema (principal)
CPT/HCPCS: 96372; J1010

== ENCOUNTER 2023-11-23 12:44 | Outpatient (RCR) | payer BC, SELFPAY ==
[2023-11-23 12:52] VITALS: BP 132/86; PULSE 60; TEMP 37.2; O2SAT 98
[2023-11-23 12:54] VITALS: BP 132/86; PULSE 60; TEMP 37.2; O2SAT 98
[2023-11-23] MEDS: DEXTROSE 5 % IN WATER 250 ML 999 ML IV (13:15)
[2023-11-23] MEDS: DALBAVANCIN HCL 1,500 MG in DEXTROSE 5 % IN WATER 250 ML 650 MG IV (13:34)
--- NOTE | 2023-11-23 13:43 | PC.NURSE ---
1252: Pt. to [facility] amb. for ordered infusion. Seated in recliner. VSS. IV initiated, see documentation. Pt. tolerated without c/o.
--- NOTE | 2023-11-23 13:44 | PC.NURSE ---
1315: IV D5w initiated at this time.
--- NOTE | 2023-11-23 13:45 | PC.NURSE ---
1334: IV Jazlyn initiated at this time. Pt. without needs or c/o. Eating lunch.
--- NOTE | 2023-11-23 14:21 | PC.NURSE ---
1415: IV infusions completed without s&s of adverse reaction. IV d/c'd, pressure to site. Pt. d/c'd amb. to home.
== END 2023-12-22 23:59 | disposition home or self-care (01) ==
LOC: INF 12:44
PROVIDERS: PCP Family Medicine; Visit Provider Internal Medicine Infectious Disease
DX: A49.02 Methicillin resistant Staphylococcus aureus infection, unspecified site (principal)
CPT/HCPCS: 96365; J0875

== ENCOUNTER 2024-03-16 09:50 | Outpatient (RCR) | payer BC, SELFPAY ==
[2024-03-12 14:20] VITALS: BP 127/84; PULSE 71; TEMP 37.2; O2SAT 98
[2024-03-12] MEDS: SODIUM CHLORIDE 0.9% IV (14:28)
[2024-03-12] MEDS: DAPTOMYCIN IV (14:28)
[2024-03-13 15:02] VITALS: BP 123/79; PULSE 74; TEMP 36.9; O2SAT 98
[2024-03-13] MEDS: DAPTOMYCIN IV (15:27)
[2024-03-13] MEDS: SODIUM CHLORIDE 0.9% IV (15:27)
[2024-03-14] MEDS: DAPTOMYCIN IV (13:55)
[2024-03-14] MEDS: SODIUM CHLORIDE 0.9% IV (13:55)
[2024-03-14 14:03] VITALS: BP 132/85; PULSE 73; TEMP 36.6; O2SAT 98
[2024-03-15 14:25] VITALS: BP 124/85; PULSE 69; TEMP 37.3; O2SAT 98
[2024-03-15] MEDS: SODIUM CHLORIDE 0.9% IV (14:41)
[2024-03-15] MEDS: DAPTOMYCIN IV (14:41)
[2024-03-16 13:50] VITALS: BP 116/80; PULSE 80; TEMP 36.6; O2SAT 99
[2024-03-16] MEDS: DAPTOMYCIN IV (13:55)
[2024-03-16] MEDS: SODIUM CHLORIDE 0.9% IV (13:55)
--- NOTE | 2024-03-16 14:34 | PC.NURSE ---
Pt here for Daptomycin infusion. Culture results reviewed with pharmacist. Pt states MD office called her with results, will switch to oral ATB's. Last dose of IV Daptomycin given today w/o incident. Pt d/c'd stable.
== END 2024-03-23 23:59 | disposition home or self-care (01) ==
LOC: INF 09:50
PROVIDERS: PCP Family Medicine; Visit Provider Internal Medicine Infectious Disease
DX: L08.89 Other specified local infections of the skin and subcutaneous tissue (principal)
CPT/HCPCS: 87070; 87075; 87150; 87186; 96365; J0878

== ENCOUNTER 2024-08-15 14:36 | Outpatient (OUT) | payer BC, SELFPAY ==
--- NOTE | 2024-08-15 14:39 | MM_ITS ---
Patient Name: DEMARCUS VENTURA MR#: [id number] : 1970 Exam Date: 08/15/2024 Ordering Doctor: DR TITO FREEDMAN . RADIOLOGY REPORT PROCEDURE: MM TOMOSYNTHESIS SCREENING BI COMPARISON: MG MAMM SCREEN 3D ANIL CAD, 06/16/2020. MG MAMM SCREEN ANIL W CAD, 04/07/2018. MG MAMM ANIL SCRN W CAD DIG, 06/10/2015. MG MAMM ANIL SCRN W CAD DIG, 10/26/2012. INDICATIONS: Screening Calculator Name NCI Breast Cancer Risk Assessment Tool 5 Year Breast Cancer Risk 1.00% Lifetime Breast Cancer Risk 7.70% Personal Breast Cancer No Personal Ovarian Cancer No Treatments None Family Cancers Aunt-paternal with breast cancer at age 45; Father with prostate cancer at age 55; Father with melanoma cancer at age 55. LOCATION: [facility] BREAST COMPOSITION: The breasts are heterogeneously dense,which may obscure small masses. FINDINGS: DIAGNOSTIC CATEGORY 1--NEGATIVE. RIGHT BREAST: No significant suspicious finding. LEFT BREAST: No significant suspicious finding. RECOMMENDATIONS: ROUTINE MAMMOGRAM AND CLINICAL EVALUATION IN 12 MONTHS. PLEASE NOTE: A NORMAL MAMMOGRAM DOES NOT EXCLUDE THE POSSIBILITY OF BREAST CANCER. A CLINICALLY SUSPICIOUS PALPABLE LUMP SHOULD BE BIOPSIED. Dictated by: Frederic Ramos DO on 08/15/2024 at 16:01 Approved by: Frederic Ramos DO on 08/15/2024 at 16:02
== END 2024-08-15 14:37 | disposition home or self-care (01) ==
PROVIDERS: PCP Family Medicine; Visit Provider Family Medicine
DX: Z12.31 Encounter for screening mammogram for malignant neoplasm of breast (principal); Z80.3 Family history of malignant neoplasm of breast; Z80.42 Family history of malignant neoplasm of prostate; Z80.8 Family history of malignant neoplasm of other organs or systems
CPT/HCPCS: 77063; 77067

== ENCOUNTER 2024-08-16 13:02 | Outpatient (OUT) | payer BC, SELFPAY ==
--- OUTSIDE RECORDS SUMMARY | 2024-04-19 08:48 | XMS_ITS ---
Author Organization [facility] [place] Address [address] [place] [address] Care Team Providers Care Trademark Affixer Name Role Phone Ted Suresh Primary Care Provider Medications Medication SIG (Take, Route, Fr equency, Duration) Notes Start Date End Date Status Benzonatate 200 MG 1 [address] ee times a day for 7 days 04/19/2024 Active Encounters Encounter Location Date Provider Diagnosis [facility] [address] [place] [address] 04/19/2024 Ted Suresh Plan Of Treatment Medication Medication Name Sig Start Date Stop Date Notes Benzonatate 200 MG 1 capsule [address]ally Thr ee times a day for 7 days 04/19/2024 Progress Notes * Sherron VENTURADeeB:1970 ( 53 yo F)Acc No.[id number]:04/19/2024 Patient: Savannah VALDES :1970 A ge:53 Y S ex:Female Address:[address] [place], [address] * Refills Start Benzonatate Capsule, 200 MG, Orally, 20 Capsule, 1 capsule, Three times a day, 7 days * true * Date: Generated for Aleenai ng/Faxing/eTransmitting on: 0 08/16/2024 01:04 PM EDT
--- OUTSIDE RECORDS SUMMARY | 2024-08-16 08:52 | XMS_ITS ---
Author Organization [facility] [place] Address [address] [place] [address] Care Team Providers Care Energy Analyst Name Role Phone Ted Suresh Primary Care Provider Problems Problem Type SNOMED Code ICD Code Onset Dates Problem Status W/U Status Risk Notes Problem Well adult ([id number]) Well adult (Z00.00) Active confirmed Encounters Encounter Location Date Provider Diagnosis [facility] [address] [place] [address] 08/16/2024 Ted Suresh Well adult Z00.0 0 Assessments Encounter Date Diagnosis (ICD Code) Assessment Notes Treatment Notes Treatment Clinical Notes Section Notes 08/16/2024 Well adult (ICD-10 - Z00.00) Plan Of Treatment Pending Test Test Name Order Date HEMOGLOBIN A1C (GLYCO) 08/16/2024 LIPID PANEL (CHOL/TRIG/HDL/LDL) 08/17/19 25 CBC AUTO DIFF 08/16/2024 PROF 14(COMP METB) 08/16/2024 TSH 08/16/2024 Progress Notes * LORENZOPennyB:1970 ( 54 yo F)Acc No.[id number]:08/16/2024 Patient: Savannah VALDES :1970 A ge:54 Y S ex:Female Address:[address] [place], [address] Subjective: * Chief Complaints: * * Medical History: * Surgical History: * Hospitalization/Major Diagno stic Procedure: * Medications: Objective: * Vitals: * Physical Examination: Assessment: * Assessment: 1. W [facility] adult - Z00.00 (Primary) Plan: * Treatment: * Procedure Codes: * true * Date: Generated for Jess zamora/Yessica/Frankie on: 0 08/16/2024 01:04 PM EDT
--- OUTSIDE RECORDS SUMMARY | 2024-08-16 13:04 | XMS_ITS | Encounter Summary ---
Author Organization [facility] Address [address] [place] [address] Care Team Providers Care Artificial Stone Applicator Name Role Phone Martin Chao MD Primary Care Provider [phone] Damian Suresh MD Primary Care Provider [phone] Encounter Details Date Type Department Care Team (Late st Contact Info) Description 11/02/2023 Abstract [facility] [address] [place], [place] [id number] [place] [id number] Shey Riley LPN Social History Tobacco Use Types Packs/Day Years Used Date Smoking Tobacco: Never Passive Smoke Exposure: Past Smokeless Tobacco: Never Alcohol Use Standard Drinks/Week Comments Yes 1 (1 standard drink = 0.6 oz pure alcohol) caffeine intake : coffee 2 cups daily , pop 2 cans daily AUDIT-C Answer Date Recorded Q1: How often do you have a drink containing alcohol? 4 or more times a week 12/08/2022 Q2: How many drinks containi ng alcohol do you have on a typical day when you are drinking? 1 or 2 3 Q3: How often do you have si x or more drinks on one occasion? 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
--- OUTSIDE RECORDS SUMMARY | 2024-08-16 13:04 | XMS_ITS | Patient Health Record ---
Author Organization [facility] in [place] Address [address] [place] [address] Care Team Providers Care Telecom Field Technician Name Role Phone Ted Freedman Primary Care Provider TITO FREEDMAN Unavailable [phone] Allergies No Known Allergies Results Component Value Reference Range Notes Aerobic Culture Reviewed date:03/16/2024 01:26:13 PM Interpretation: Performing Lab: Notes/Report: [facility] , Aerobic Culture See Below For Report Aerobic Culture O:MRSA Isolated Organism: 1.1 Antibiotic Interpretation GERONIMO Status Aerobic Culture Specimen has been received and testing has been initiated. Aerobic Culture O:MRSA Isolated Organism: 1.1 Antibiotic Interpretation GERONIMO Status Aerobic Culture Organism: Methicilli n Resis Staph Aureus : Aerobic Culture O:MRSA Isolated Organism: 1.1 Antibiotic Interpretation GERONIMO Status Aerobic Culture *ABNORMAL* Aerobic Culture O:MRSA Isolated Organism: 1.1 Antibiotic Interpretation GERONIMO Status Aerobic Culture Methicillin - resistant Aerobic Culture O:MRSA Isolated Organism: 1.1 Antibiotic Interpretation GERONIMO Status Aerobic Culture Based on resistance to oxacillin this isolate would be Aerobic Culture O:MRSA Isolated Organism: 1.1 Antibiotic Interpretation GERONIMO Status Aerobic Culture resistant to all currently available beta-lactam Aerobic Culture O:MRSA Isolated Organism: 1.1 Antibiotic Interpretation GERONIMO Status Aerobic Culture antimicrobial agents , with the exception of the newer Aerobic Culture O:MRSA Isolated Organism: 1.1 Antibiotic Interpretation GERONIMO Status Aerobic Culture cephalosporins with anti-MRSA activity, such as Aerobic Culture O:MRSA Isolated Organism: 1.1 Antibiotic Interpretation GERONIMO Status Aerobic Culture Ceftaroline Aerobic Culture O:MRSA Isolated Organism: 1.1 Antibiotic Interpretation GERONIMO Status Aerobic Culture Scant growth Aerobic Culture O:MRSA Isolated Organism: 1.1 Antibiotic Interpretation GERONIMO Status Aerobic Culture Methicillin Resis St aph Aureus Aerobic Culture O:MRSA Isolated Organism: 1.1 Antibiotic Interpretation GERONIMO Status Aerobic Culture See Below For Report Aerobic Culture O:MRSA Isolated Organism: 1.1 Antibiotic Interpretation GERONIMO Status Aerobic Culture Performed at: [facility] Aerobic Culture O:MRSA Isolated Organism: 1.1 Antibiotic Interpretation GERONIMO Status Aerobic Culture [address] [place], [place] [id number] Aerobic Culture O:MRSA Isolated Organism: 1.1 Antibiotic Interpretation GERONIMO Status Aerobic Culture Flooring Installer: So Tompkins PhD, Phone: [phone] Aerobic Culture O:MRSA Isolated Organism: 1.1 Antibiotic Interpretation GERONIMO Status Aerobic Culture See Below For Report Aerobic Culture O:MRSA Isolated Organism: 1.1 Antibiotic Interpretation GERONIMO Status Aerobic Culture Ciprofloxacin R F Aerobic Culture O:MRSA Isolated Organism: 1.1 Antibiotic Interpretation GERONIMO Status Aerobic Culture Erythromycin R F Aerobic Culture O:MRSA Isolated Organism: 1.1 Antibiotic Interpretation GERONIMO Status Aerobic Culture Gentamicin S F Aerobic Culture O:MRSA Isolated Organism: 1.1 Antibiotic Interpretation GERONIMO Status Aerobic Culture Levofloxacin R F Aerobic Culture O:MRSA Isolated Organism: 1.1 Antibiotic Interpretation GERONIMO Status Aerobic Culture Linezolid S F Aerobic Culture O:MRSA Isolated Organism: 1.1 Antibiotic Interpretation GERONIMO Status Aerobic Culture Oxacillin R F Aerobic Culture O:MRSA Isolated Organism: 1.1 Antibiotic Interpretation GERONIMO Status Aerobic Culture Penicillin R F Aerobic Culture O:MRSA Isolated Organism: 1.1 Antibiotic Interpretation GERONIMO Status Aerobic Culture Rifampin S F Aerobic Culture O:MRSA Isolated Organism: 1.1 Antibiotic Interpretation GERONIMO Status Aerobic Culture Tetracycline S F Aerobic Culture O:MRSA Isolated Organism: 1.1 Antibiotic Interpretation GERONIMO Status Aerobic Culture Trimethoprim/Sulfame tho xazole S F Aerobic Culture O:MRSA Isolated Organism: 1.1 Antibiotic Interpretation GERONIMO Status Aerobic Culture Vancomycin S F Aerobic Culture O:MRSA Isolated Organism: 1.1 Antibiotic Interpretation GERONIMO Status Aerobic Culture Clindamycin S F Aerobic Culture O:MRSA Isolated Organism: 1.1 Antibiotic Interpretation GERONIMO Status Performing Lab: see note - [facility] SEE REPORT - Vortex Operator Id information not found for OBX-specific hyster machine operator legend Anaerobic Culture Reviewed date:03/16/2024 01:26:13 PM Interpretation: Performing Lab: Notes/Report: [facility] , Anaerobic Culture See Below For Report Anaerobic Culture Anaerobic Culture No anaerobic growth in 72 hours. Anaerobic Culture Performing Lab: see note - [facility] Aerobic Culture Reviewed date:03/16/2024 01:26:13 PM Interpretation: Performing Lab: Notes/Report: [facility] , Aerobic Culture See Below For Report Aerobic Culture O:MRSA Isolated Organism: 2.1 Antibiotic Interpretation GERONIMO Status Ciprofloxacin Ciprofloxacin R F Erythromycin Erythromycin R F Gentamicin Gentamicin S F Levofloxacin Levofloxacin R F Linezolid Linezolid S F Oxacillin Oxacillin R F Penicillin Penicillin R F Rifampin Rifampin S F Tetracycline Tetracycline S F Trimethoprim/Sulfameth oxazole Trimethoprim/Sulfameth oxazole S F Vancomycin Vancomycin S F Clindamycin Clindamycin S F Aerobic Culture Specimen has been received and testing has been initiated. Aerobic Culture O:MRSA Isolated Organism: 2.1 Antibiotic Interpretation GERONIMO Status Ciprofloxacin Ciprofloxacin R F Erythromycin Erythromycin R F Gentamicin Gentamicin S F Levofloxacin Levofloxacin R F Linezolid Linezolid S F Oxacillin Oxacillin R F Penicillin Penicillin R F Rifampin Rifampin S F Tetracycline Tetracycline S F Trimethoprim/Sulfameth oxazole Trimethoprim/Sulfameth oxazole S F Vancomycin Vancomycin S F Clindamycin Clindamycin S F Aerobic Culture Organism: Methicilli n Resis Staph Aureus : Aerobic Culture O:MRSA Isolated Organism: 2.1 Antibiotic Interpretation GERONIMO Status Ciprofloxacin Ciprofloxacin R F Erythromycin Erythromycin R F Gentamicin Gentamicin S F Levofloxacin Levofloxacin R F Linezolid Linezolid S F Oxacillin Oxacillin R F Penicillin Penicillin R F Rifampin Rifampin S F Tetracycline Tetracycline S F Trimethoprim/Sulfameth oxazole Trimethoprim/Sulfameth oxazole S F Vancomycin Vancomycin S F Clindamycin Clindamycin S F Aerobic Culture *ABNORMAL* Aerobic Culture O:MRSA Isolated Organism: 2.1 Antibiotic Interpretation GERONIMO Status Ciprofloxacin Ciprofloxacin R F Erythromycin Erythromycin R F Gentamicin Gentamicin S F Levofloxacin Levofloxacin R F Linezolid Linezolid S F Oxacillin Oxacillin R F Penicillin Penicillin R F Rifampin Rifampin S F Tetracycline Tetracycline S F Trimethoprim/Sulfameth oxazole Trimethoprim/Sulfameth oxazole S F Vancomycin Vancomycin S F Clindamycin Clindamycin S F Aerobic Culture Methicillin - resistant Aerobic Culture O:MRSA Isolated Organism: 2.1 Antibiotic Interpretation GERONIMO Status Ciprofloxacin Ciprofloxacin R F Erythromycin Erythromycin R F Gentamicin Gentamicin S F Levofloxacin Levofloxacin R F Linezolid Linezolid S F Oxacillin Oxacillin R F Penicillin Penicillin R F Rifampin Rifampin S F Tetracycline Tetracycline S F Trimethoprim/Sulfameth oxazole Trimethoprim/Sulfameth oxazole S F Vancomycin Vancomycin S F Clindamycin Clindamycin S F Aerobic Culture Based on resistance to oxacillin this isolate would be Aerobic Culture O:MRSA Isolated Organism: 2.1 Antibiotic Interpretation GERONIMO Status Ciprofloxacin Ciprofloxacin R F Erythromycin Erythromycin R F Gentamicin Gentamicin S F Levofloxacin Levofloxacin R F Linezolid Linezolid S F Oxacillin Oxacillin R F Penicillin Penicillin R F Rifampin Rifampin S F Tetracycline Tetracycline S F Trimethoprim/Sulfameth oxazole Trimethoprim/Sulfameth oxazole S F Vancomycin Vancomycin S F Clindamycin Clindamycin S F Aerobic Culture resistant to all currently available beta-lactam Aerobic Culture O:MRSA Isolated Organism: 2.1 Antibiotic Interpretation GERONIMO Status Ciprofloxacin Ciprofloxacin R F Erythromycin Erythromycin R F Gentamicin Gentamicin S F Levofloxacin Levofloxacin R F Linezolid Linezolid S F Oxacillin Oxacillin R F Penicillin Penicillin R F Rifampin Rifampin S F Tetracycline Tetracycline S F Trimethoprim/Sulfameth oxazole Trimethoprim/Sulfameth oxazole S F Vancomycin Vancomycin S F Clindamycin Clindamycin S F Aerobic Culture antimicrobial agents , with the exception of the newer Aerobic Culture O:MRSA Isolated Organism: 2.1 Antibiotic Interpretation GERONIMO Status Ciprofloxacin Ciprofloxacin R F Erythromycin Erythromycin R F Gentamicin Gentamicin S F Levofloxacin Levofloxacin R F Linezolid Linezolid S F Oxacillin Oxacillin R F Penicillin Penicillin R F Rifampin Rifampin S F Tetracycline Tetracycline S F Trimethoprim/Sulfameth oxazole Trimethoprim/Sulfameth oxazole S F Vancomycin Vancomycin S F Clindamycin Clindamycin S F Aerobic Culture cephalosporins with anti-MRSA activity, such as Aerobic Culture O:MRSA Isolated Organism: 2.1 Antibiotic Interpretation GERONIMO Status Ciprofloxacin Ciprofloxacin R F Erythromycin Erythromycin R F Gentamicin Gentamicin S F Levofloxacin Levofloxacin R F Linezolid Linezolid S F Oxacillin Oxacillin R F Penicillin Penicillin R F Rifampin Rifampin S F Tetracycline Tetracycline S F Trimethoprim/Sulfameth oxazole Trimethoprim/Sulfameth oxazole S F Vancomycin Vancomycin S F Clindamycin Clindamycin S F Aerobic Culture Ceftaroline Aerobic Culture O:MRSA Isolated Organism: 2.1 Antibiotic Interpretation GERONIMO Status Ciprofloxacin Ciprofloxacin R F Erythromycin Erythromycin R F Gentamicin Gentamicin S F Levofloxacin Levofloxacin R F Linezolid Linezolid S F Oxacillin Oxacillin R F Penicillin Penicillin R F Rifampin Rifampin S F Tetracycline Tetracycline S F Trimethoprim/Sulfameth oxazole Trimethoprim/Sulfameth oxazole S F Vancomycin Vancomycin S F Clindamycin Clindamycin S F Aerobic Culture Scant growth Aerobic Culture O:MRSA Isolated Organism: 2.1 Antibiotic Interpretation GERONIMO Status Ciprofloxacin Ciprofloxacin R F Erythromycin Erythromycin R F Gentamicin Gentamicin S F Levofloxacin Levofloxacin R F Linezolid Linezolid S F Oxacillin Oxacillin R F Penicillin Penicillin R F Rifampin Rifampin S F Tetracycline Tetracycline S F Trimethoprim/Sulfameth oxazole Trimethoprim/Sulfameth oxazole S F Vancomycin Vancomycin S F Clindamycin Clindamycin S F Aerobic Culture Methicillin Resis St aph Aureus Aerobic Culture O:MRSA Isolated Organism: 2.1 Antibiotic Interpretation GERONIMO Status Ciprofloxacin Ciprofloxacin R F Erythromycin Erythromycin R F Gentamicin Gentamicin S F Levofloxacin Levofloxacin R F Linezolid Linezolid S F Oxacillin Oxacillin R F Penicillin Penicillin R F Rifampin Rifampin S F Tetracycline Tetracycline S F Trimethoprim/Sulfameth oxazole Trimethoprim/Sulfameth oxazole S F Vancomycin Vancomycin S F Clindamycin Clindamycin S F Aerobic Culture See Below For Report Aerobic Culture O:MRSA Isolated Organism: 2.1 Antibiotic Interpretation GERONIMO Status Ciprofloxacin Ciprofloxacin R F Erythromycin Erythromycin R F Gentamicin Gentamicin S F Levofloxacin Levofloxacin R F Linezolid Linezolid S F Oxacillin Oxacillin R F Penicillin Penicillin R F Rifampin Rifampin S F Tetracycline Tetracycline S F Trimethoprim/Sulfameth oxazole Trimethoprim/Sulfameth oxazole S F Vancomycin Vancomycin S F Clindamycin Clindamycin S F Aerobic Culture Performed at: [facility] Aerobic Culture O:MRSA Isolated Organism: 2.1 Antibiotic Interpretation GERONIMO Status Ciprofloxacin Ciprofloxacin R F Erythromycin Erythromycin R F Gentamicin Gentamicin S F Levofloxacin Levofloxacin R F Linezolid Linezolid S F Oxacillin Oxacillin R F Penicillin Penicillin R F Rifampin Rifampin S F Tetracycline Tetracycline S F Trimethoprim/Sulfameth oxazole Trimethoprim/Sulfameth oxazole S F Vancomycin Vancomycin S F Clindamycin Clindamycin S F Aerobic Culture [address] [place], [place] [id number] Aerobic Culture O:MRSA Isolated Organism: 2.1 Antibiotic Interpretation GERONIMO Status Ciprofloxacin Ciprofloxacin R F Erythromycin Erythromycin R F Gentamicin Gentamicin S F Levofloxacin Levofloxacin R F Linezolid Linezolid S F Oxacillin Oxacillin R F Penicillin Penicillin R F Rifampin Rifampin S F Tetracycline Tetracycline S F Trimethoprim/Sulfameth oxazole Trimethoprim/Sulfameth oxazole S F Vancomycin Vancomycin S F Clindamycin Clindamycin S F Aerobic Culture Flooring Installer: So Tompkins PhD, Phone: [phone] Aerobic Culture O:MRSA Isolated Organism: 2.1 Antibiotic Interpretation GERONIMO Status Ciprofloxacin Ciprofloxacin R F Erythromycin Erythromycin R F Gentamicin Gentamicin S F Levofloxacin Levofloxacin R F Linezolid Linezolid S F Oxacillin Oxacillin R F Penicillin Penicillin R F Rifampin Rifampin S F Tetracycline Tetracycline S F Trimethoprim/Sulfameth oxazole Trimethoprim/Sulfameth oxazole S F Vancomycin Vancomycin S F Clindamycin Clindamycin S F Aerobic Culture See Below For Report Aerobic Culture O:MRSA Isolated Organism: 2.1 Antibiotic Interpretation GERONIMO Status Ciprofloxacin Ciprofloxacin R F Erythromycin Erythromycin R F Gentamicin Gentamicin S F Levofloxacin Levofloxacin R F Linezolid Linezolid S F Oxacillin Oxacillin R F Penicillin Penicillin R F Rifampin Rifampin S F Tetracycline Tetracycline S F Trimethoprim/Sulfameth oxazole Trimethoprim/Sulfameth oxazole S F Vancomycin Vancomycin S F Clindamycin Clindamycin S F Aerobic Culture See Below For Report Aerobic Culture O:MRSA Isolated Organism: 2.1 Antibiotic Interpretation GERONIMO Status Ciprofloxacin Ciprofloxacin R F Erythromycin Erythromycin R F Gentamicin Gentamicin S F Levofloxacin Levofloxacin R F Linezolid Linezolid S F Oxacillin Oxacillin R F Penicillin Penicillin R F Rifampin Rifampin S F Tetracycline Tetracycline S F Trimethoprim/Sulfameth oxazole Trimethoprim/Sulfameth oxazole S F Vancomycin Vancomycin S F Clindamycin Clindamycin S F Aerobic Culture See Below For Report Aerobic Culture O:MRSA Isolated Organism: 2.1 Antibiotic Interpretation GERONIMO Status Ciprofloxacin Ciprofloxacin R F Erythromycin Erythromycin R F Gentamicin Gentamicin S F Levofloxacin Levofloxacin R F Linezolid Linezolid S F Oxacillin Oxacillin R F Penicillin Penicillin R F Rifampin Rifampin S F Tetracycline Tetracycline S F Trimethoprim/Sulfameth oxazole Trimethoprim/Sulfameth oxazole S F Vancomycin Vancomycin S F Clindamycin Clindamycin S F Aerobic Culture See Below For Report Aerobic Culture O:MRSA Isolated Organism: 2.1 Antibiotic Interpretation GERONIMO Status Ciprofloxacin Ciprofloxacin R F Erythromycin Erythromycin R F Gentamicin Gentamicin S F Levofloxacin Levofloxacin R F Linezolid Linezolid S F Oxacillin Oxacillin R F Penicillin Penicillin R F Rifampin Rifampin S F Tetracycline Tetracycline S F Trimethoprim/Sulfameth oxazole Trimethoprim/Sulfameth oxazole S F Vancomycin Vancomycin S F Clindamycin Clindamycin S F Aerobic Culture See Below For Report Aerobic Culture O:MRSA Isolated Organism: 2.1 Antibiotic Interpretation GERONIMO Status Ciprofloxacin Ciprofloxacin R F Erythromycin Erythromycin R F Gentamicin Gentamicin S F Levofloxacin Levofloxacin R F Linezolid Linezolid S F Oxacillin Oxacillin R F Penicillin Penicillin R F Rifampin Rifampin S F Tetracycline Tetracycline S F Trimethoprim/Sulfameth oxazole Trimethoprim/Sulfameth oxazole S F Vancomycin Vancomycin S F Clindamycin Clindamycin S F Aerobic Culture See Below For Report Aerobic Culture O:MRSA Isolated Organism: 2.1 Antibiotic Interpretation GERONIMO Status Ciprofloxacin Ciprofloxacin R F Erythromycin Erythromycin R F Gentamicin Gentamicin S F Levofloxacin Levofloxacin R F Linezolid Linezolid S F Oxacillin Oxacillin R F Penicillin Penicillin R F Rifampin Rifampin S F Tetracycline Tetracycline S F Trimethoprim/Sulfameth oxazole Trimethoprim/Sulfameth oxazole S F Vancomycin Vancomycin S F Clindamycin Clindamycin S F Aerobic Culture See Below For Report Aerobic Culture O:MRSA Isolated Organism: 2.1 Antibiotic Interpretation GERONIMO Status Ciprofloxacin Ciprofloxacin R F Erythromycin Erythromycin R F Gentamicin Gentamicin S F Levofloxacin Levofloxacin R F Linezolid Linezolid S F Oxacillin Oxacillin R F Penicillin Penicillin R F Rifampin Rifampin S F Tetracycline Tetracycline S F Trimethoprim/Sulfameth oxazole Trimethoprim/Sulfameth oxazole S F Vancomycin Vancomycin S F Clindamycin Clindamycin S F Aerobic Culture See Below For Report Aerobic Culture O:MRSA Isolated Organism: 2.1 Antibiotic Interpretation GERONIMO Status Ciprofloxacin Ciprofloxacin R F Erythromycin Erythromycin R F Gentamicin Gentamicin S F Levofloxacin Levofloxacin R F Linezolid Linezolid S F Oxacillin Oxacillin R F Penicillin Penicillin R F Rifampin Rifampin S F Tetracycline Tetracycline S F Trimethoprim/Sulfameth oxazole Trimethoprim/Sulfameth oxazole S F Vancomycin Vancomycin S F Clindamycin Clindamycin S F Aerobic Culture See Below For Report Aerobic Culture O:MRSA Isolated Organism: 2.1 Antibiotic Interpretation GERONIMO Status Ciprofloxacin Ciprofloxacin R F Erythromycin Erythromycin R F Gentamicin Gentamicin S F Levofloxacin Levofloxacin R F Linezolid Linezolid S F Oxacillin Oxacillin R F Penicillin Penicillin R F Rifampin Rifampin S F Tetracycline Tetracycline S F Trimethoprim/Sulfameth oxazole Trimethoprim/Sulfameth oxazole S F Vancomycin Vancomycin S F Clindamycin Clindamycin S F Aerobic Culture See Below For Report Aerobic Culture O:MRSA Isolated Organism: 2.1 Antibiotic Interpretation GERONIMO Status Ciprofloxacin Ciprofloxacin R F Erythromycin Erythromycin R F Gentamicin Gentamicin S F Levofloxacin Levofloxacin R F Linezolid Linezolid S F Oxacillin Oxacillin R F Penicillin Penicillin R F Rifampin Rifampin S F Tetracycline Tetracycline S F Trimethoprim/Sulfameth oxazole Trimethoprim/Sulfameth oxazole S F Vancomycin Vancomycin S F Clindamycin Clindamycin S F Aerobic Culture See Below For Report Aerobic Culture O:MRSA Isolated Organism: 2.1 Antibiotic Interpretation GERONIMO Status Ciprofloxacin Ciprofloxacin R F Erythromycin Erythromycin R F Gentamicin Gentamicin S F Levofloxacin Levofloxacin R F Linezolid Linezolid S F Oxacillin Oxacillin R F Penicillin Penicillin R F Rifampin Rifampin S F Tetracycline Tetracycline S F Trimethoprim/Sulfameth oxazole Trimethoprim/Sulfameth oxazole S F Vancomycin Vancomycin S F Clindamycin Clindamycin S F Aerobic Culture See Below For Report Aerobic Culture O:MRSA Isolated Organism: 2.1 Antibiotic Interpretation GERONIMO Status Ciprofloxacin Ciprofloxacin R F Erythromycin Erythromycin R F Gentamicin Gentamicin S F Levofloxacin Levofloxacin R F Linezolid Linezolid S F Oxacillin Oxacillin R F Penicillin Penicillin R F Rifampin Rifampin S F Tetracycline Tetracycline S F Trimethoprim/Sulfameth oxazole Trimethoprim/Sulfameth oxazole S F Vancomycin Vancomycin S F Clindamycin Clindamycin S F Aerobic Culture See Below For Report Aerobic Culture O:MRSA Isolated Organism: 2.1 Antibiotic Interpretation GERONIMO Status Ciprofloxacin Ciprofloxacin R F Erythromycin Erythromycin R F Gentamicin Gentamicin S F Levofloxacin Levofloxacin R F Linezolid Linezolid S F Oxacillin Oxacillin R F Penicillin Penicillin R F Rifampin Rifampin S F Tetracycline Tetracycline S F Trimethoprim/Sulfameth oxazole Trimethoprim/Sulfameth oxazole S F Vancomycin Vancomycin S F Clindamycin Clindamycin S F Performing Lab: see note LC - [facility] SEE REPORT - Vortex Operator Id information not found for OBX-specific hyster machine operator legend MM tomosynthesis screening B I Reviewed date:08/15/2024 05:44:55 PM Interpretation: Performing Lab: Notes/Report: Source Facility: [place] [address] [facility] [place] [id number] Mammography Report Signed Patient: DEMARCUS VENTURA MR#: [id number] : 1970 Acct:[id number] Age/Sex: 54 / F ADM Date: 08/15/24 Loc: MAMMO Attending Dr: Tito Freedman M.D. Ordering Physician: Tito Freedman M.D. Results: Date of Service: 08/15/24 Follow Up: Procedure(s): MM tomosynthesis screening BI Accession Number(s): [id number] cc: Tito Freedman M.D. Patient Name: DEMARCUS VENTURA MR#: [id number] : 1970 Exam Date: 08/15/2024 Ordering Doctor: DR TITO FREEDMAN . RADIOLOGY REPORT PROCEDURE: MM TOMOSYNTHESIS SCREENING BI COMPARISON: MG MAMM SCREEN 3D ANIL CAD, 06/16/2020. MG MAMM SCREEN ANIL W CAD, 04/07/2018. MG MAMM ANIL SCRN W CAD DIG, 06/10/2015. MG MAMM ANIL SCRN W CAD DIG, 10/26/2012. INDICATIONS: Screening Calculator Name NCI Breast Cancer Risk Assessment Tool 5 Year Breast Cancer Risk 1.00% Lifetime Breast Cancer Risk 7.70% Personal Breast Cancer No Personal Ovarian Cancer No Treatments None Family Cancers Aunt-paternal with breast cancer at age 45; Father with prostate cancer at age 55; Father with melanoma cancer at age 55. LOCATION: [facility] BREAST COMPOSITION: The breasts are heterogeneously dense,which may obscure small masses. FINDINGS: DIAGNOSTIC CATEGORY 1--NEGATIVE. RIGHT BREAST: No significant suspicious finding. LEFT BREAST: No significant suspicious finding. RECOMMENDATIONS: ROUTINE MAMMOGRAM AND CLINICAL EVALUATION IN 12 MONTHS. PLEASE NOTE: A NORMAL MAMMOGRAM DOES NOT EXCLUDE THE POSSIBILITY OF BREAST CANCER. A CLINICALLY SUSPICIOUS PALPABLE LUMP SHOULD BE BIOPSIED. Dictated by: Frederic Ramos DO on 08/15/2024 at 16:01 Approved by: Frederic Ramos DO on 08/15/2024 at 16:02 Dictated By: Frederic Ramos M.D. Signed By: 08/15/24 1603 DD/ 160 TD/TT: Hub Cutter Apprentice: [place] [address] Mammography Report Signed Patient: DEMARCUS VENTURA MR#: [id number] : 1970 Acct:[id number] Age/Sex: 54 / F ADM Date: 08/15/24 Loc: MAMMO Attending Dr: Augie Freedman M.D. Ordering Physician: Tito Freedman M.D. Results: Date of Service: 08/15/24 Follow Up: Procedure(s): MM tomosynthesis screening BI Accession Number(s): [id number] cc: Tito Freedman M.D. Patient Name: DEMARCUS VENTURA MR#: [id number] : 1970 Exam Date: 08/15/2024 Ordering Doctor: DR TITO FREEDMAN . RADIOLOGY REPORT PROCEDURE: MM TOMOSYNTHESIS SCREENING BI COMPARISON: MG MAMM SCREEN 3D ANIL CAD, 06/16/2020. MG MAMM SCREEN ANIL W CAD, 04/07/2018. MG M AMM ANIL SCRN W CAD DIG, 06/10/2015. MG MAMM ANIL SCRN W CAD DIG, 10/26/2012. INDICATIONS: Screening Calculator Name NCI Breast Cancer Risk Assessment Tool 5 Year Breast Cancer Risk 1.00% Lifetime Breast Canc er Risk 7.70% Personal Breast Canc er No Personal Ovarian Can cer No Treatments None Family Cancers Aunt-paternal with breast cancer at age 45; Father with prostate cancer at a ge 55; Father with melanoma cancer at age 55. LOCATION: [facility] BREAST COMPOSITION: The breasts are heterogeneously dense,which may obscure small masses. FINDINGS: DIAGNOSTIC CATEGORY 1--NEGATIVE. RIGHT BREAST: No significant suspicious finding. LEFT BREAST: No significant suspicious finding. RECOMMENDATIONS: ROUTINE MAMMOGRAM AN D CLINICAL EVALUATION IN 12 MONTHS. PLEASE NOTE: A BERNABE L MAMMOGRAM DOES NOT EXCLUDE THE POSSIBILITY OF BREAST CANCER. A CLINICALLY SUSPICIOUS PALPABLE LUMP SHOULD BE BIOPSIED. Dictated by: Frederic Ramos DO on 08/15/2024 at 16:01 Approved by: Frederic Ramos DO on 08/15/2024 at 16:02 Dictated By: Frederic Ramos M.D. Signed By: 08/15/241602 DD/ 01 TD/TT: Hub Cutter Apprentice: Reason For Referral No Information Medications Medication SIG (Take, Route, Frequency, Duration) Notes Start Date End Date Status Amoxicillin-Pot Clavulanate 875-125 MG 1 tablet Orally every 12 hrs for 10 days 04/16/2024 Active Semaglutide (2 MG/DOSE) 8 MG/3ML 2.268mg weekly Subcutaneous weekly Active Triamcinolone Acetonide 0.1 % 1 applicat ion Externally bid 03/22/2024 Active Metoprolol Tartrate 25 MG TAKE 1 TABLET TWICE A DAY for 90 Unknown Venlafaxine HCl ER 150 MG 1 capsule with food Orally Once a day for 90 days Active hydroCHLOROthiazide 25 MG TAKE 1 TABLET DAILY for 90 days Active Hyoscyamine Sulfate 0.125 MG 1-2 tabs SL SL every 4 hrs PRN abd pain 05/16/2024 Active ALPRAZolam 0.25 MG 1 tablet Orally TID prn for 7 days F41.9 05/16/2024 Active Doxycycline Monohydrate 100 MG 1 capsule Orally bid for 10 days 05/16/2024 Active Aldactone 100 MG 1 tablet Orally Once a day Unknown Ondansetron 4 MG 1 tablet on the tong ue and allow to dissolve Orally Once a day for 30 day(s) 05/16/2024 Active predniSONE 20 MG 2 tablets Orally Onc e a day for 5 days 04/16/2024 Active Mirapex ER 0.375 MG 1 tablet Orally Once a day for 90 days Active Benzonatate 200 MG 1 capsule Orally Thr ee times a day for 7 days 04/19/2024 Active Valtrex 1 GM 1 tablet Orally TID for 7 days Unknown Ondansetron 4 MG 1 tablet on the tong ue and allow to dissolve Orally Q 6 hours PRN for 3 12/27/2022 Unknown Social History Tobacco Use: Social History Observation Description Date Details (start date - stop date) Never Smoker NA - NA Tobacco Use/Smoking Question Answer Notes Patient is a nonsmoker Problems Problem Type SNOMED Code ICD Code Onset Dates Problem Status W/U Status Risk Notes Problem [id number] Other hallucinations (R44.2) Active confirmed Problem Well adult (793707386) Well adult (Z00.00) Active confirmed Problem Periorbital cellulitis (570635779) Periorbital cellulitis (L03.211) Active confirmed Encounters Encounter Location Date Provider Diagnosis [facility] [address] [facility] [address] 04/12/2024 Ted [facility] [address] [facility] [address] 04/16/2024 Ted [facility] [address] [facility] [address] 04/19/2024 Ted deirdre [facility] [address] [facility] [address] 05/16/2024 Ted [facility] [address] [facility] [address] 08/16/2024 Ted Freedman Well adult Z00.00 [facility] [address] [facility] [address] 01/15/2024 Ted [facility] [address] [facility] [address] 03/12/2024 Ted [facility] [address] [facility] [address] 03/14/2024 Ted [facility] [address] [facility] [address] 03/16/2024 Ted Freedman Well adult Z00.00 [facility] [address] [facility] [address] 03/22/2024 Ted deirdre [facility] [address] [facility] [address] 03/26/2024 Ted Freedman [facility] [address] [facility] [place] [address] 08/18/2023 TITO Deirdre [facility] [address] [facility] [place] [place] [address] 08/18/2023 TITO FREEDMAN [facility] [address] [facility] [place] [place] [address] 08/18/2023 TITO FREEDMAN Periorbital cellulit is L03.211 [facility] [address] [place] [address] 09/02/2023 Ted Freedman [facility] [address] [place] [address] 11/17/2023 Ted Freedman [facility] [address] [place] [address] 11/29/2023 Ted Freedman Assessments Encounter Date Diagnosis (ICD Code) Assessment Notes Treatment Notes Treatment Clinical Notes Section Notes 08/18/2023 Periorbital cellulitis (ICD-10 - L03.211) 03/16/2024 Well adult (ICD-10 - Z00.00) 08/16/2024 Well adult (ICD-10 - Z00.00) Plan Of Treatment Pending Test Test Name Order Date HEMOGLOBIN A1C (GLYCO) 08/16/2024 LIPID PANEL (CHOL/TRIG/HDL/LDL) 08/17/[address] Facial Bones w/o contrast * MRI Brain w/wo contrast * 03/22/2023 FECAL OCCULT BLOOD 03/16/2024 EEG Routine 03/22/2023 CMP - Comprehensive Metabolic Panel 02/22 CBC AUTO DIFF 08/16/2024 CBC AUTO DIFF 03/16/2024 GLYCOHEMOGLOBIN A1C 03/16/2024 LIPID PROFILE 03/16/2024 PROF 14(COMP METB) 08/16/2024 TSH 08/16/2024 THYROID PANEL (T4/TSH/FREE T3) Vitamin D 03/16/2024 Insurance Providers Payer Name Payer Address Payer Phone Subscriber Number Group Number Insured Name Patient Relationship to Insured Coverage Start Date Coverage End Date [facility] [address] [place] [address] [id number] Demarcus Vent[place] Self - patient is the insured 9 Medical (General) History Medical History History ICD Code RACHEL acne MRSA recurrent C-diff Surgical History Surgery Date(Month/Year) I&D left thigh abscess DOS 07/09/22 DR Ta mlyn bunion right foot vein surgery bilat lower legs hysterectomy
--- OUTSIDE RECORDS SUMMARY | 2024-08-16 13:04 | XMS_ITS | Encounter Summary ---
Author Organization [facility] Address [address] [place] [address] Care Team Providers Care Summer Babysitter Name Role Phone Martin Chao MD Primary Care Provider [phone] Damian Suresh MD Primary Care Provider [phone] Encounter Details Date Type Department Care Team (Late st Contact Info) Description 08/19/2023 Orders Only [facility] [address] [place] [phone] A, Unknown Practice [address] [place], [place] [address] Social History Tobacco Use Types Packs/Day Years [...] when you are drinking? 1 or 2 Q3: How often do you have si [...] on file documented as of this encounter Procedures Procedure Name Priority Date/Time Associated Diagnosis Comments CT FACIAL BONES WO/W CON Routine 08/19/2023 1:18 PM EDT documented in this encounter Results * CT FACIAL BONES WO/W CON (08/19/2023 1:18 PM EDT) Anatomical Region Laterality Modality Radiographic Magi ging us Unknown Practice A IMG XR PROCEDURES Final Resul t documented in this encounter Visit Diagnoses Not on filedocumented in this encounter Care Teams Summer Babysitter Relationship Specialty Start Date End Date Martin Chao MD [address] [place] [address] PCP - General Internal Medicine 09/06/22 08/14/24 Damian Suresh MD [address] [place] [address] PCP - General Family Medicine 08/15/24 documented as of this encounter
--- OUTSIDE RECORDS SUMMARY | 2024-08-16 13:04 | XMS_ITS | Encounter Summary ---
Author Organization [facility] Address [address] [place] [address] Care Team Providers Care Senior Software Qa Engineer Name Role Phone Martin Chao MD Primary Care Provider [phone] Damian Suresh MD Primary Care Provider [phone] Encounter Details Date Type Department Care Team (Late st Contact Info) Description 09/22/2022 Abstract [facility] [address] [facility] [address] [place] [phone] Rose Marie Figueroa, RISK CONTROL ANALYST [address] [place] [address] Social History Tobacco Use Types Packs/Day Years Used Date Smoking Tobacco: Never Passive Smoke Exposure: Past Smokeless Tobacco: Never Tobacco Cessation:Counseling Given: Not Answered Alcohol Use Standard Drinks/Week Comments Yes 1 (1 standard drink = 0.6 oz pure alcohol) caffeine intake : coffee 2 cups daily , pop 2 cans daily AUDIT-C Answer Date Recorded Q1: How often do you have a drink containing alcohol? 4 or more times a week 09/06/2022 Q2: How many drinks containi ng alcohol do you have on a typical day when you are drinking? 1 or 2 Q3: How often do you have si x or more drinks on one occasion? Never 09/06/2022 Comments Unknown Sex and Gender Information Value [...] on filedocumented in this encounter Care Teams Senior Software Qa Engineer Relationship Specialty Start Date End Date Martin Chao MD [address] [facility] [place] [address] PCP - General Internal Medicine 09/06/22 08/14/24 Damian Suresh MD [address] [place] [address] PCP - General Family Medicine 08/15/24 documented as of this encounter
--- OUTSIDE RECORDS SUMMARY | 2024-08-16 13:04 | XMS_ITS | Encounter Summary ---
Author Organization [facility] Address [address] [place] [address] Care Team Providers Care Senior Trial Attorney Name Role Phone Porsha Parra MD Primary Care Provider + Pcp, No AVIATION SAFETY OFFICER Primary Care Provider Unavailabl e Source Comments In the event this information is protected by the Federal Confidentiality of Alcohol and Drug AbusePatient Records regulations: The Federal rules restrict any use of the information to criminally investigate or prosecute any alcohol or drug abuse patient.[facility] Encounter Details Date Type Department Care Team (Latest Contact Info) Description 10/07/2003 Prob Sum Review Provider, [facility] Social History Tobacco Use Types Packs/Day Years Used Date Smoking Tobacco: Never Alcohol Use Standard Drinks/Week Comments Yes 0 (1 standard drink = 0.6 oz pur e alcohol) Comments No Sex and Gender Information Value Date Recorded Sex Assigned at Not on file Legal Sex Female 9:26 AM EST Gender Identity Not on file Sexual Orientation Not on file documented as of this encounter Plan of Treatment Not on file documented as of this encounter Visit Diagnoses Not on filedocumented in this encounter Care Teams Senior Trial Attorney Relationship Specialty Start Date End Date Porsha Parra MD [address] [place] [address] PCP - General 10/01/03 09/04/21 Pcp, No, AVIATION SAFETY OFFICER PCP - General 09/05/21 03/23/22 documented as of this encounter
--- OUTSIDE RECORDS SUMMARY | 2024-08-16 13:04 | XMS_ITS | Clinical Summary ---
Author Organization [facility] Address [address] [place] [address] Care Team Providers Care Trimmer Hand Name Role Phone Unavailable Primary Care Provider Unavailabl e Medications DYNACIN 100MG CAPSULE 1 capsule every day 0 04/11/2002 Active NECON -28 TABLET 1 tablet every day 0 04/11/2002 Active WELLBUTRIN XL 300MG TABLET as dir 0 10/09/2003 Active HYDROCHLOROTHIA ZIDE 25MG TB Take one(1) tablet daily. 0 10/09/2003 Active Active Problems Problem Noted Date Diagnosed Date Varicose veins of lower extremities with inflamm ation 10/09/2003 Family History Relation Status Comments Father Alive prostate ca Mother Alive Social History Tobacco Use Types Packs/Day Years Used Date Smoking Tobacco: Never Alcohol Use Standard Drinks/Week Comments Yes 0 (1 standard drink = 0.6 oz pur e alcohol) Comments No Sex and Gender Information Value Date Recorded Sex Assigned at Not on file Legal Sex Female 9:26 AM EST Gender Identity Not on file Sexual Orientation Not on file Last Filed Vital Signs Vital Sign Reading Time Taken Comments Blood Pressure 104/62 10/09/2003 2:47 PM EDT Pulse 64 10/09/2003 2:47 PM EDT Temperature 36.6 C (97.9 F) 10/09/2003 2:47 PM EDT Respiratory Rate - - Oxygen Saturation - - Inhaled Oxygen Concentration - - Weight - - Height - - Body Mass Index - - Plan of Treatment Health Maintenance Due Date Last Done Comments Anxiety Screening 05/05/1989 Depression Screening 05/05/1989 HIV Screening 05/05/1989 Hepatitis C Screening 05/05/1989 DTaP,Tdap,Td Vaccine (1 - Tdap) 05/05/1990 Hepatitis B Vaccine (1 of 3 - 19+ 3-dose series) 03/15 /1991 Cervical Cancer Screening 05/05/[address] Colonography 05/05/2016 Cologuard (FIT-DNA) 05/05/2016 Colonoscopy 05/05/2016 Colorectal Cancer Screening 05/05/2016 Diabetes Screening 05/05/2016 Fecal Occult Blood 05/05/2016 Lipid Screening 05/05/2016 Sigmoidoscopy 05/05/2016 Pneumococcal Vaccine: 50+ (1 of 1 - PCV) 05/05/2021 Shingrix Vaccine (1 of 2) 05/05/2021 Covid-19 Vaccine (1 - season) 2023 Influenza Vaccine (Season Ended) 2024 Insurance BLUE CARD PPO OOS
--- OUTSIDE RECORDS SUMMARY | 2024-08-16 13:04 | XMS_ITS | Clinical Summary ---
Author Organization [facility] Address [address] [place] [address] Care Team Providers Care Bead Preparer Name Role Phone Damian Suresh MD Primary Care Provider [phone] Allergies No known active allergies Medications valACYclovir (Valtrex) 500 MG tablet Take 500 mg by mouth 3 (three) times a day as needed. Active Pramipexole Dihydrochloride ER (Mirapex ER) 0.375 MG tablet sustained-release 24 hour 1 (one) time each day at the same time. Active metoprolol tartrate (Lopressor) 25 MG tablet Take 25 mg by mouth in the morning and 25 mg before bedtime. Active hydroCHLOROthiazide (HYDRODiuril) 25 MG tablet Take 1 tablet by mouth in the morning. Active venlafaxine XR (Effexor XR) 150 MG 24 hr capsule Take 150 mg by mouth in the morning. Do not crush or chew. . Active vancomycin (Vancocin) 125 MG capsule Take 125 mg by mouth in the morning. 3 Active sulfamethoxazole-tr imethoprim (Bactrim DS) 800-160 MG per tablet Take 1 tablet by mouth in the morning and 1 tablet before bedtime. 3 Active fluorouracil (Efudex) 5 % creamIndications:Ac tinic keratosis Apply to lower legs bid x 14 days 40 g 1 3 Active semaglutide (Ozempic) 2 MG/1.5ML solution pen-injectorIndicat ions:Insulin resistance,BMI 30.0-30.9,adult Inject 0.63mL (2.268mg) once weekly as directed 2.52 mL 5 Active Active Problems Problem Noted Date Diagnosed Date At risk for Clostridium difficile infection 03/2022 Assessment & Plan (09/22/2022 11:21 AM EDT): Reports history of recurrent cdif most recently in June. Facial abscess 09/22/2022 Acne 09/06/2022 Clostridium enterocolitis 09/06/2022 Assessment & Plan (09/06/2022 4:21 PM EDT): No signs right now. History of this though. Effusion, left knee 09/06/2022 Generalized anxiety disorder 09/06/2022 Acquired hypothyroidism 09/06/2022 Internal derangement of right knee 09/06/2022 Pain in left knee 09/06/2022 Peripheral venous insufficiency 09/06/2022 Osteoarthritis of knee 09/06/2022 Primary osteoarthritis 09/06/2022 Ventricular ectopy 09/06/2022 MRSA (methicillin resistant Staphylococcus aureu s) 09/06/2022 Assessment & Plan (09/22/2022 11:25 AM EDT): I placed call over to Dr. Boo's office. He is out of the office right now. Nursing staff will let us know about the issue and call us with antibiotic recommendations from him this afternoon. If patient hasn't heard from us by later afternoon, she is to call for further guidance. No fevers, chills. There is a bit of redness around the right eye that I agree is concerning for reoccurrence. Assessment & Plan (09/06/2022 4:18 PM EDT): Had 2 abscess from this. Once two years ago, then back in June had another. Cellulitis of right orbital region 09/06/2022 Assessment & Plan (09/06/2022 4:35 PM EDT): Examined with Dr. Álvarez. Advised hospital admission and possibly an I and D. We do need to preserve the eye and the eye function. She is having a headache. Dr Álvarez called [facility] the ER. Varicose veins of lower extremities with inflamm ation 10/09/2003 Immunizations Immunization Administration Dates Next Due DTP 10/19/2021 Family History Medical History Relation Name Comments No Known Problems Brother Hypertension Father Melanoma Father Skin cancer Father Mental illness Mother No Known Problems Son Relation Name Status Comments Brother 1 brother Father Alive Mother Son Alive 1 son Social History Tobacco Use Types Packs/Day Years [...] Not on file Not on fi le Last Filed Vital Signs Vital Sign Reading Time Taken Comments Blood Pressure 110/82 12/08/2022 1:39 PM EDT Pulse 69 12/08/2022 1:39 PM EDT Temperature - - Respiratory Rate - - Oxygen Saturation 99% 12/08/2022 1:39 PM EDT Inhaled Oxygen Concentration - - Weight 71.2 kg (157 lb) 12/08/2022 1:39 PM EDT Height 165.1 cm (5' 5 ) 12/08/2022 1:39 PM EDT Body Mass Index 26.13 12/08/2022 1:39 PM EDT Plan of Treatment Health Maintenance Due Date Last Done Comments CT Colonography 1971 FIT-DNA 1971 FIT 1971 FOBT 1971 Sigmoidoscopy 1971 Pap Smear 05/05/1992 Cervical Cancer Screening 05/05/2001 HPV/Cotest 05/05/2001 Mammogram 04/07/2019 04/07/2018, 04/07/2018 Influenza Vaccine (Season Ended) 2024 Colonoscopy 01/26/2027 01/26/2017 Colorectal Cancer Screening 01/26/2027 Procedures Procedure Name Priority Date/Time Associated Diagnosis Comments BI MAMMOGRAM SCREENING TOMOSYNTHESIS BILATERAL Routine 04/07/2018 COLONOSCOPY Routine 01/26/2017 12:00 PM EST from Last 3 Months or Most Recently Relevant to Health Maintenance Results * Bilateral screening mammogram with tomosynthesis (04/07/2018) Anatomical Region Laterality Modality Breast Bilateral Mammography Narrative 04/07/2018 12:00 AM EST PERFORMED AT [facility] LOCATION:[address] [address] Patient: SAVANNAH VENTURA Exam Date: 04/07/2018 : 1970 Gender:F Ordering : DR KORINA CHAO Admission #: [id number] Family : KARINE QUACH . Order #: [id number] CLICK HERE TO VIEW EXAM RADIOLOGY REPORT PROCEDURE: MAMMOGRAM BILATERAL SCREENING DIGITAL WITH COMPUTER AIDED DETECTION COMPARISON: MG MAMM ANIL SCRN W CAD DIG, 03/04/2014. MG MAMM ANIL SCRN W CAD DIG, 10/26/2012. MG MAMM ANIL SCRN W CAD DIG, 06/10/2015. INDICATIONS: Screening mammography Calculator Name NCI Breast Cancer Risk Assessment Tool 5 Year Breast Cancer Risk 0.80% Lifetime Breast Cancer Risk 8.50% Personal Breast Cancer No Personal Ovarian Cancer No Treatments None Family Cancers Aunt-paternal with breast cancer at age 45; Father with prostate cancer at age 55; Father with melanoma cancer at age 55. LOCATION: [facility] BREAST COMPOSITION: Heterogeneously dense,which may obscure small masses. FINDINGS: DIAGNOSTIC CATEGORY 1--NEGATIVE ASSESSMENT. RIGHT BREAST: No significant suspicious finding. No significant change has occurred. LEFT BREAST: No significant suspicious finding. No significant change has occurred. RECOMMENDATIONS: ROUTINE MAMMOGRAM AND CLINICAL EVALUATION IN 12 MONTHS. PLEASE NOTE: A NORMAL MAMMOGRAM DOES NOT EXCLUDE THE POSSIBILITY OF BREAST CANCER. A CLINICALLY SUSPICIOUS PALPABLE LUMP SHOULD BE BIOPSIED. Dictated by: Lior Liu MD on 04/07/2018 at 10:18 Approved by: Lior Liu MD on 04/07/2018 at 10:21 Procedure Note CONVERSION, GENERIC - 08/27/2022 PERFORMED AT [facility] LOCATION:[address] [address] Patient: SAVANNAH VENTURA Exam Date: 04/07/2018 : 1970 Gender:F Ordering : DR KORINA CHAO Admission #: [id number] Family : KARINE QUACH . Order #: [id number] CLICK HERE TO VIEW EXAM RADIOLOGY REPORT PROCEDURE: MAMMOGRAM BILATERAL SCREENING DIGITAL WITH COMPUTER AIDED DETECTION COMPARISON: MG MAMM ANIL SCRN W CAD DIG, 03/04/2014. MG MAMM ANIL SCRN WCAD DIG, 10/26/2012. MG MAMM ANIL SCRN W CAD DIG, 06/10/2015. INDICATIONS: Screening mammography Calculator Name NCI Breast Cancer Risk Assessment Tool 5 Year Breast Cancer Risk 0.80% Lifetime Breast Cancer Risk 8.50% Personal Breast Cancer No Personal Ovarian Cancer No Treatments None Family Cancers Aunt-paternal with breast cancer at age 45; Fatherwith prostate cancer at age 55; Father with melanoma cancer at age 55. LOCATION: [facility] BREAST COMPOSITION: Heterogeneously dense,which may obscure smallmasses. FINDINGS: DIAGNOSTIC CATEGORY 1--NEGATIVE ASSESSMENT. RIGHT BREAST: No significant suspicious finding. No significant changehas occurred. LEFT BREAST: No significant suspicious finding. No significant changehas occurred. RECOMMENDATIONS: ROUTINE MAMMOGRAM AND CLINICAL EVALUATION IN 12 MONTHS. PLEASE NOTE: A NORMAL MAMMOGRAM DOES NOT EXCLUDE THE POSSIBILITY OFBREAST CANCER. A CLINICALLY SUSPICIOUS PALPABLE LUMP SHOULD BE BIOPSIED. Dictated by: Lior Liu MD on 04/07/2018 at 10:18 Approved by: Lior Liu MD on 04/07/2018 at 10:21 Korina Chao MD IMG BI PROCEDURES Final Result * Colonoscopy (01/26/2017 12:00 PM EST) Anatomical Region Laterality Modality Endoscopy 01/26/2017 12:0 0 PM EST Narrative 02/03/2017 12:00 PM EST PERFORMED AT [facility] LOCATION:[id number] redundant colon Procedure Note CONVERSION, GENERIC - 07/08/2022 PERFORMED AT [facility] LOCATION:[id number] redundant colon Korina Chao MD ENDOSCOPY PROCEDURE ORDERABLES Final Result from Last 3 Months or Most Recently Relevant to Health Maintenance Insurance [facility] Care Teams Bead Preparer Relationship Specialty Start Date End Date Damian Suresh MD [address] [place] [address] PCP - General Family Medicine 08/15/24
[2024-08-16 13:09] LABS: Basophils Percent Auto 0.4 % (0.2-2.0); Eosinophils Percent Auto 0.8 % (0.9-7.0); Hematocrit 41.9 % (36.0-48.0); Hemoglobin 14.2 g/dL (12.0-16.0); Immature Granulocytes Abs Auto 0.01 10^3/uL (0.00-0.03); Immature Granulocytes Pct Auto 0.2 % (0.0-0.5); Lymphocytes Absolute Auto 2.2 10^3/uL (1.2-3.8); Mean Corpuscular HGB Conc 33.9 g/dL (29.9-35.2); Mean Corpuscular Hemoglobin 30.1 pg (26.7-34.0); Mean Corpuscular Volume 88.8 fL (81.0-99.0); Mean Platelet Volume 10.3 fL (9.5-13.5); Monocytes Absolute Auto 0.3 10^3/uL (0.3-0.8); Monocytes Percent Auto 7.1 % (1.7-12.0); Neutrophils Absolute Auto 2.2 10^3/uL (1.4-6.5); Neutrophils Percent Auto 45.5 % (43.0-75.0); Platelet Count 291 10^3/uL (150-450); Red Blood Count 4.72 10^6/uL (4.20-5.40); Red Cell Distribution Width 12.8 % (11.0-15.0); White Blood Count 4.8 10^3/uL (4.0-11.0)
[2024-08-16 13:54] LABS: Estimated Average Glucose 91 mg/dL; Glycohemoglobin A1C 4.8 % (4.5-6.2)
[2024-08-16 14:16] LABS: Alanine Aminotransferase 24 U/L (14-59); Albumin Globulin Ratio 1.1; Albumin Level 3.9 g/dL (3.4-5.0); Alkaline Phosphatase 53 U/L (46-116); Anion Gap 12.4; Aspartate Amino Transferase 22 U/L (15-37); Bilirubin Total 0.4 mg/dL (0.2-1.0); Calcium 9.4 mg/dL (8.5-10.1); Carbon Dioxide 30.6 mmol/L (21.0-32.0); Chloride 100 mmol/L (98-107); Chol HDL Ratio 1.8; Cholesterol 236 mg/dL (<=200); Estimated GFR (African America >60 (>=60 mL/min/1.73m^2); Estimated GFR (Non-African Ame >60 (>=60 mL/min/1.73m^2); Globulin 3.5 g/dL; Glucose 92 mg/dL (74-106); HDL Cholesterol 129 mg/dL (40-60); Sodium 140 mmol/L (136-145); Thyroid Stimulating Hormone 0.438 uIU/mL (0.358-3.740); Total Protein 7.4 g/dL (6.4-8.2); Triglycerides 45 mg/dL (<=150)
== END 2024-08-16 13:03 | disposition home or self-care (01) ==
LOC: LAB 13:02
PROVIDERS: PCP Family Medicine; Visit Provider Family Medicine
DX: Z00.00 Encounter for general adult medical examination without abnormal findings (principal)
CPT/HCPCS: 36415; 80053; 80061; 83036; 84443; 85025